=== PATIENT | female | born 1950 | race Caucasian/White ===

== ENCOUNTER 2022-06-29 13:37 | Emergency (ER) | payer MEDICARE, SELFPAY ==
[2022-06-29 13:48] VITALS: BP 128/62; PULSE 82; RESP 16; TEMP 36.4; O2SAT 96
--- NOTE | 2022-06-29 14:30 | DI.CT_ITS ---
Exam(s) CT LUMBAR SPINE SI JOINTS WO EXAM: CT LUMBAR SPINE SI JOINTS WO CLINICAL HISTORY: Worsening low back pain. TECHNIQUE: Imaging Protocol: Axial computed tomography images with coronal and sagittal reformatted images were created and reviewed COMPARISON: No exams were available for comparison FINDINGS: Bones: The last intervertebral disc space is designated the L5/S1 level for the numbering purpose of this examination. The bones appear osteoporotic. L1: There is a mild compression fracture of the inferior endplate of L1 which is eccentric toward the right.. Fracture lines are visible, consistent with an acute fracture. There is mild retropulsion, proximal 4 millimeters of the inferior endplate into the central canal with overall no significant c entral canal stenosis. L2: No compression fracture. Degenerative disc changes eccentric toward the left with prominent oste ophytes. Left-sided neural foraminal narrowing at L2-3. L3: Asymmetric loss of vertebral body height on the right side which appears chronic. L4-5: No fractures. Severe disc space narrowing and prominent endplate osteophytes and sclerosis ecc entric toward the right causing degenerative scoliosis. Facet degenerative changes present. Right-s ided neural foraminal narrowing. L5-S1: Unremarkable. Sacrum: No acute fractures. The visualized SI joints are maintained. Soft Tissues: The paraspinal soft tissues are unremarkable. Large quantity of stool noted. Mild ath erosclerotic changes of the iliac arteries and abdominal aorta. IMPRESSION: Acute mild compression fracture of the inferior endplate of L1. Old compression fracture of L3. Disc changes and scoliosis. Findings called to [facility] emergency department provider. RADIATION DOSE DELIVERED: 534.01mGy.cm Total DLP DATA REPOSITORY: All CT scans at this facility are submitted to the National Radiology Data Registry (NRDR) Dose Index Registry (DIR) with the [employer] ([employer]). RADIATION OPTIMIZATION: All CT scans at this facility use at least one of these dose optimization te chniques: automated exposure control; mA and/or kV adjustment per patient size (includes targeted exa ms where dose is matched to clinical indication); or iterative reconstruction.
[2022-06-29] MEDS: oxyCODONE 5 MG TAB PO (14:51)
[2022-06-29] MEDS: Methocarbamol 500 MG TAB PO (15:02)
--- NOTE | 2022-06-29 15:12 | ED.GENADUL_ITS ---
Discharge Plan Disposition Patient Disposition: Home Condition: Stable Discharge Details Clinical Impression: Closed compression fracture of L1 vertebra Primary Care Provider: Guadalupe,Local ED Provider: Epi Zhou Home Meds and New Rx's Prescriptions: New gabapentin 100 mg capsule 100 mg PO BID PRN (Reason: pain) Qty: 30 0RF Continued tizanidine 2 mg tablet 2 mg PO PRN PRN levothyroxine 75 mcg tablet 75 mcg PO DAILY Premarin 0.625 mg/gram cream 1 applic vaginal DAILY diclofenac sodium 50 mg tablet,delayed release (DR/EC) 50 mg PO BID Patient Comments: Take 1 TAB by mouth twice daily as needed for pain, avoid other NSAIDs ibandronate [Boniva] 150 mg Tablet 150 mg PO QMONTH Nucynta 50 mg tablet 50 mg PO PRN PRN Patient Comments: Take one tablet by mouth twice daily as needed for pain GROUP D MDD 2 Stiolto Respimat 2.5-2.5 mcg/actuation mist 1 puff INHALATION DAILY Rinvoq 15 mg tablet extended release 24 hr 15 mg PO Q OTHER DAY Discharge Instructions Instructions: Vertebral Compression Fracture (ED) Additional Instructions: Please take medication as prescribed and you may continue to use your NSAIDs and acetaminophen as needed for pain. Please use the provided opioid narcotic for severe pain only and take as directed. You may perform light activities as tolerated but do not lift any more than 2 pounds, no bending or twisting activities. It is recommended that you follow-up with your primary care provider in the next 3 to 5 days for reassessment and medication refills or changes as needed. As discussed if you develop any significant new or worsening symptoms such as fever, severe uncontrollable pain, severe weakness to your lower extremities, changes in bowel or bladder function or saddle anesthesia return immediately to the emergency department for reassessment. Referrals: Primary Care Provider [Outside] - 3 days Medical Decision Making Patient presenting to the emergency department for chief complaint of worsening back pain. Patient reports this started approximately 10 days ago after being in yoga which she felt like she strained her back but then the next day it worsened. She has been placed upon muscle relaxers, is on tramadol on long-term basis for her RA, and has better been performing stretches along with seeing intensive care unit nurse with only worsening symptoms. Patient denies any bowel or bladder dysfunction, fever chills, lower extremity dysfunction or loss of sensation. Physical exam shows tenderness to the central aspects of the lumbar spine and the left SI joint with some paraspinal tenderness also noted more on the left than the right. DTR hours are intact and equal bilateral along with pulses and sensation. LOW risk for ABDOMINAL AORTIC ANEURYSM, CAUDA EQUINA SYNDROME, EPIDURAL MASS LESION, SPINAL STENOSIS, OR HERNIATED DISK CAUSING SEVERE STENOSIS. Given the patient does state worsening of symptoms will perform CT imaging given that she states she has already had x-rays done. Pending results will give Robaxin and single dose of oxycodone. Reviewed CT imaging and radiologist interpretation that shows no acute L1 comp ression fracture with no severe cord compression but there is mild disc protrusion noted. Also noted is an old L3 compression fracture. Reassessed patient and patient does state some improvement of discomfort. Did discuss diagnosis with patient and she requests lidocaine patch with which I feel is reasonable to see if this helps with her discomfort. I will send her home with limited prescription prescription of oxycodone given that this seems to help better than her tramadol but she was instructed not to use both given potential interaction and oversedation. Patient does state in the past due to severe pain and discomfort she has been prescribed gabapentin and while side effects were not as favorable for her it did seem to help. Given this I will give her low- dose gabapentin as a trial. We will also place patient on follow-up with primary care provider for recheck of her pain and refills of RXs as needed for outpatient basis. After discussion of diagnosis and plan of care patient has no further needs, questions, or concerns and states clear understanding to return to the emergency department for any worsening symptoms. This documentation was generated using [employer] dictation system, please disregard any oddities of phrase or misspellings. Imaging Data Radiologic Study: Attestation: I personally reviewed and interpreted this imaging study as follows: Imaging: CT Scan Radiologist's impression: EXAM: CT LUMBAR SPINE SI JOINTS WO CLINICAL HISTORY: Worsening low back pain. TECHNIQUE: Imaging Protocol: Axial computed tomography images with coronal and sagittal reformatted images were created and reviewed COMPARISON: No exams were available for comparison FINDINGS: Bones: The last intervertebral disc space is designated the L5/S1 level for the numbering purpose of this examination. The bones appear osteoporotic. L1: There is a mild compression fracture of the inferior endplate of L1 which is eccentric toward the right.. Fracture lines are visible, consistent with an acute fracture. There is mild retropulsion, proximal 4 millimeters of the inferior endplate into the central canal with overall no significant central canal stenosis. L2: No compression fracture. Degenerative disc changes eccentric toward the left with prominent osteophytes. Left-sided neural foraminal narrowing at L2-3. L3: Asymmetric loss of vertebral body height on the right side which appears chronic. L4-5: No fractures. Severe disc space narrowing and prominent endplate osteophytes and sclerosis eccentric toward the right causing degenerative scoliosis. Facet degenerative changes present. Right-sided neural foraminal narrowing. L5-S1: Unremarkable. Sacrum: No acute fractures. The visualized SI joints are maintained. Soft Tissues: The paraspinal soft tissues are unremarkable. Large quantity of stool noted. Mild atherosclerotic changes of the iliac arteries and abdominal aorta. IMPRESSION: Acute mild compression fracture of the inferior endplate of L1. Old compression fracture of L3. Disc changes and scoliosis. HPI General Mode of arrival: ambulatory . Date/Time Provider Initiated Documentation: 06/29/22 14:11 . Limitations to Documentation: no limitations . Information obtained by: patient and RN notes reviewed . History of Present Illness 71 year old F presents to the emergency department with the chief complaint of Back pain, described as severe, with intensity rated at 9. Quality is described as sharp, and is localized to the back. Patient reports no radiation. Patient started experiencing this day(s) (10) and it has been constant. other things that improve symptom(s), (Heat therapy) Movement worsens symptoms . Patient notes no other symptoms.. Patient did receive the following treatments prior to arrival, NSAID Related Data Home Medications Medication Instructions Recorded Confirmed conjugated estrogens 0.625 mg/gram 1 applic vaginal DAILY 06/29/22 06/29/22 vaginal cream (Premarin) diclofenac sodium 50 mg 50 mg PO BID 06/29/22 06/29/22 tablet,delayed release gabapentin 100 mg capsule 100 mg PO BID PRN pain #30 caps 06/29/22 ibandronate 150 mg tablet (Boniva) 150 mg PO QMONTH 06/29/22 06/29/22 levothyroxine 75 mcg tablet 75 mcg PO DAILY 06/29/22 06/29/22 tapentadol 50 mg tablet (Nucynta) 50 mg PO PRN PRN 06/29/22 06/29/22 tiotropium 2.5 mcg-olodaterol 2.5 1 puff inhalation DAILY 06/29/22 06/29/22 mcg/actuation mist for inhalation (Stiolto Respimat) tizanidine 2 mg tablet 2 mg PO PRN PRN 06/29/22 06/29/22 upadacitinib 15 mg tablet,extended 15 mg PO Q OTHER DAY 06/29/22 06/29/22 release 24 hr (Rinvoq) Previous Rx's Medication Instructions Recorded gabapentin 100 mg capsule 100 mg PO BID PRN pain #30 caps 06/29/22 Allergies Allergy/AdvReac Type Severity Reaction Status Date / Time etanercept [From Enbrel] Allergy Unverified 06/29/22 14:44 meperidine [From Demerol] Allergy Unverified 06/29/22 14:44 sulfasalazine Allergy Unverified 06/29/22 14:44 General Stated Complaint: Nk/Back Pain CRISTÓBAL: 3 Review of Systems Constitutional Constitutional: Denies chills and Denies fever(s) Cardiovascular Cardiovascular: Denies chest pain and Denies dyspnea on exertion Respiratory Respiratory: Denies cough and Denies dyspnea on exertion Gastrointestinal Gastrointestinal: Denies abdominal pain, Denies change in bowel habits, Denies diarrhea, Denies nausea and Denies vomiting Genitourinary Genitourinary: Denies urinary incontinence Musculoskeletal Musculoskeletal: Reports as per HPI and Reports back pain Integumentary/Breasts Skin/Breast: Denies rash Neurologic Neurologic: Denies sensory deficit PFSH All Active Problems (Updated 06/29/22 @ 15:51 by Epi Zhou NP) Closed compression fracture of L1 vertebra (Acute) Rheumatoid arthritis (Chronic) Social History Smoking risk assessment performed?: No Alcohol Intake: never Substance use type: does not use Do you feel safe at home: Yes Do you feel safe in your relationship?: Yes Exam Const General: cooperative and no acute distress Orientation: alert, awake and oriented x3 Neck Neck: normal visual inspection, full ROM and no meningeal signs Resp Effort & Inspection: normal respiratory effort Auscultation: clear to auscultation bilaterally Cardio Rate: regular rate Rhythm: regular rhythm Heart Sounds: S1 normal and S2 normal GI Palpation: no hepatosplenomegaly, no aortic enlargement, no masses and no pulsatile masses Back/Spine/Pelvis Thoracic/Lumbar Spine: pain with thoraco-lumbar ROM, paraspinal tenderness, thoraco-lumbar ROM limited, No thoracic spinal tenderness and lumbar spinal tenderness Pelvis: no pain with anterior-posterior compression, no pain with lateral compression and buttock tenderness on the left Sacroiliac joints: on the left tender to palpation Neuro General: patient alert, patient awake and patient oriented x3 DTR's: Rt Patellar: 2+, Lt Patellar: 2+, Rt Ankle: 2+ and Lt Ankle: 2+ Extrem General: normal to inspection, full ROM and normal exam except as noted Course Vital Signs Vital signs: Vital Signs Temperature 36.4 C L 06/29/22 13:48 Pulse 82 06/29/22 13:48 Respiratory Rate 16 06/29/22 13:48 Blood Pressure 128/62 06/29/22 13:48 Pulse Oximetry 96 06/29/22 13:48 Temperature 36.4 C L 06/29/22 13:48 Temperature Source Tympanic 06/29/22 13:48 Pulse 82 06/29/22 13:48 Respiratory Rate 16 06/29/22 13:48 Blood Pressure 128/62 06/29/22 13:48 Blood Pressure Position Sitting 06/29/22 13:48 Pulse Oximetry 96 06/29/22 13:48 Oxygen Delivery Method Room Air 06/29/22 13:48 Oxygen Flow Rate 0 06/29/22 13:48 Pain Level 9 06/29/22 13:48
[2022-06-29] MEDS: Lidocaine 5% Patch 1 PATCH TP (15:54)
[2022-06-29 16:11] VITALS: BP 128/75; PULSE 68; RESP 18; O2SAT 97
== END 2022-06-29 16:08 | disposition home or self-care (01) ==
PROVIDERS: Emergency Provider Nurse Practitioner Family
DX: S32.019A Unspecified fracture of first lumbar vertebra, initial encounter for closed fracture (principal); X50.9XXA Other and unspecified overexertion or strenuous movements or postures, initial encounter
CPT/HCPCS: 99284; 72131

== ENCOUNTER 2024-04-12 12:58 | Emergency (ER) | payer MEDICARE, SELFPAY ==
[2024-04-12 12:59] VITALS: BP 132/74; PULSE 95; RESP 16; TEMP 36.4; O2SAT 98
--- NOTE | 2024-04-12 13:20 | W.ED.GENAD ---
Discharge Plan Disposition Patient Disposition: Home Condition: Stable Discharge Details Clinical Impression: Embedded tick of left lower leg Primary Care Provider: Guadalupe,Local ED Provider: Monica Lane Home Meds and New Rx's Prescriptions: New doxycycline hyclate 100 mg capsule 100 mg PO BID 10 Days Qty: 20 0RF Rx Instructions: Take 1 capsule twice daily x 10 days No Action levothyroxine 75 mcg tablet 75 mcg PO DAILY Premarin 0.625 mg/gram cream 1 applic vaginal DAILY diclofenac sodium 50 mg tablet,delayed release (DR/EC) 50 mg PO BID Patient Comments: Take 1 TAB by mouth twice daily as needed for pain, avoid other NSAIDs Stiolto Respimat 2.5-2.5 mcg/actuation mist 1 puff INHALATION DAILY Rinvoq 15 mg tablet extended release 24 hr 15 mg PO DAILY misoprostol 100 mcg tablet 100 mcg PO QID Patient Comments: Take one capsule/tablet by mouth twice daily when you take diclofenac to prevent gastritis famotidine 20 mg tablet 20 mg PO DAILY Patient Comments: Take 1 by mouth every evening with diclophenac tramadol 50 mg tablet 50 mg PO BID PRN Patient Comments: Take one capsule/tablet by mouth twice daily as needed for pain, group D MDD 2 Prolia 60 mg/mL syringe 60 mg SUBCUT ONCE Patient Comments: INJECT 60 MG UNDER THE SKIN EVERY 6 MONTHS Discharge Instructions Instructions: Insect Bites and Stings ED Additional Instructions: At this time the tick was removed. However due to the length of the tick possibly being embedded will treat you with doxycycline x 10 days. Please take this antibiotic with yogurt or a probiotic. Please follow-up with your primary care provider for further Lyme testing. Follow up with primary care provider in 3-5 days. Return to ED sooner if any worsening rash, joint pain, chest pain palpitations or concerns. Thank you for allowing us to care for you today. Referrals: Primary Care Provider [Outside] - 5 days Discharge Data Discharge Date/Time-TO BE ENTERED AT DEPARTURE: 04/12/24 13:35 HPI General Mode of arrival: ambulatory. Date/Time Provider Initiated Documentation: 04/12/24 13:07. Limitations to Documentation: no limitations. Information obtained by: patient, RN notes reviewed and old records reviewed. HPI Narrative: 73-year-old female presents to the ER with a chief complaint of embedded tick to the lateral aspect of her left thigh. She noticed it today. She states that it may have been there as early as last Saturday. There is a small red rash around the tick bite. The tick is not engorged at this time, is still alive and embedded. She denies any joint pain, other fever or any other concerns at this time. Related Data Home Medications ?Medication ?Instructions ?Recorded ?Confirmed conjugated estrogens 0.625 mg/gram 1 applic vaginal DAILY 06/29/22 04/12/24 vaginal cream (Premarin) diclofenac sodium 50 mg 50 mg PO BID 06/29/22 04/12/24 tablet,delayed release levothyroxine 75 mcg tablet 75 mcg PO DAILY 06/29/22 04/12/24 tiotropium 2.5 mcg-olodaterol 2.5 1 puff inhalation DAILY 06/29/22 04/12/24 mcg/actuation mist for inhalation (Stiolto Respimat) upadacitinib 15 mg tablet,extended 15 mg PO DAILY 06/29/22 04/12/24 release 24 hr (Rinvoq) denosumab 60 mg/mL subcutaneous 60 mg subcut ONCE 04/12/24 04/12/24 syringe (Prolia) doxycycline hyclate 100 mg capsule 100 mg PO BID Tick bite 10 days 04/12/24 #20 caps famotidine 20 mg tablet 20 mg PO DAILY 04/12/24 04/12/24 misoprostol 100 mcg tablet 100 mcg PO QID 04/12/24 04/12/24 tramadol 50 mg tablet 50 mg PO BID PRN 04/12/24 04/12/24 Previous Rx's ?Medication ?Instructions ?Recorded doxycycline hyclate 100 mg capsule 100 mg PO BID Tick bite 10 days 04/12/24 #20 caps Allergies Allergy/AdvReac Type Severity Reaction Status Date / Time etanercept (From Enbrel) Allergy Unknown Verified 04/12/24 13:03 meperidine (From Demerol) Allergy Unknown Verified 04/12/24 13:03 sulfasalazine Allergy Unknown Verified 04/12/24 13:03 General Stated Complaint: InsectBite CRISTÓBAL: 5 Exam Const General: cooperative, healthy appearing, well developed and well groomed Nutritional Appearance: average body habitus and well nourished Orientation: alert, awake and oriented x3 Extrem Left lower extremity: hip/thigh Details: foreign body mid upper leg lateral Details: single (Embedded today, surrounding ecchymosis noted) Course Vital Signs Vital signs: Vital Signs Temperature 36.4 C L 04/12/24 12:59 Pulse 95 H 04/12/24 12:59 Respiratory Rate 16 04/12/24 12:59 Blood Pressure 132/74 04/12/24 12:59 Pulse Oximetry 98 04/12/24 12:59 Temperature 36.4 C L 04/12/24 12:59 Temperature Source Oral 04/12/24 12:59 Pulse 95 H 04/12/24 12:59 Respiratory Rate 16 04/12/24 12:59 Respiratory Effort Normal 04/12/24 13:08 Blood Pressure 132/74 04/12/24 12:59 Blood Pressure Position Sitting 04/12/24 12:59 Pulse Oximetry 98 04/12/24 12:59 Oxygen Delivery Method Room Air 04/12/24 12:59 Oxygen Flow Rate 0 04/12/24 12:59 Pain Level 0 04/12/24 12:59 Procedures Foreign Body Removal Time Out Performed: no Site: left and lower extremity Description of foreign body: insect (Tick) Sedation/Analgesia: none Technique: manual removal and removal with forceps Confirmed by:: direct visualization Complications: none Post-procedure exam: awake, alert Neurovascular: normal distal pulse, normal capillary fill and no change from pre-procedure Medical Decision Making 73-year-old female presents to the ER with a chief complaint of embedded tick to the lateral aspect of her left thigh. She noticed it today. She states that it may have been there as early as last Saturday. There is a small red rash around the tick bite. The tick is not engorged at this time, is still alive and embedded. She denies any joint pain, other fever or any other concerns at this time. Tick was removed with forceps, due to the length of possible tick embedded will treat with doxycycline 100 mg x 10 days. Patient discussed home care, follow-up care and strict return instructions. Patient given a prescription. This text was generated using [employer] system, please disregard any oddities of phrase or misspellings. Quality:SDOH Health Related Social Needs: No Data to Display PFSH All Active Problems (Updated 04/12/24 @ 13:[address] NP) Embedded tick of left lower leg (Acute) Rheumatoid arthritis (Chronic) Social History Smoking risk assessment performed?: No Alcohol Intake: never Substance use type: does not use Do you feel safe at home: Yes Do you feel safe in your relationship?: Yes
[2024-04-12] MEDS: Doxycycline Hyclate 100 MG CAP PO (13:24)
--- OUTSIDE RECORDS SUMMARY | 2024-04-12 13:34 | XMS_ITS | Continuity of Care Document ---
Author Organization [facility] Pract ice Address [facility] [address] [place] [address] Phone [phone] Care Team Providers Care Rn New Graduate Name Role Phone Siddharth Riojas NP Care Team Information Injection Maintenance Technician Unavailable
--- OUTSIDE RECORDS SUMMARY | 2024-04-12 13:35 | XMS_ITS | Continuity of Care Document ---
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 ??She presents with severe back pain??for the past couple weeks.?? Her pain has remained refractory to oral pain medications and a brace.?? She has no signs of overt myelopathy on exam.?? CT??lumbar spine was reviewed and interpreted,??demonstrates??L1 and L3??vertebral body??compression??fractures. ?? I had a detailed discussion with the patient today??at the bedside.?? I have ordered an MRI lumbar spine for??further evaluation of the??chronicity of the fractures.?? We will plan for??possible kyphoplasty??after the MRIs have been obtained??during this hospital course??pending OR availability.?? Recommend continuing the brace.?? PT/OT. ?? We will follow along for neurosurgical needs. ?? Rest of care per??primary team. ? Intractable back pain Compression fracture of L1 vertebra Rheumatoid arthritis Hypothyroidism Extracted from: Title:Admit H&P Author:Gilmer Alcala PA-C te:07/11/22 71-year-old female??with pas t medical history of hypothyroidism and??rheumatoid arthritis presents to the hospital with intractable back pain.?? Intractable back pain Severe. 2/2 compression fracture - started on pain regimen - tylenol around the clock - oxycodone prn - ordered tizanidine TID ? Compression fracture of L1 vertebra Noted on CT scan - neurosurgery consulted - PT eval needs to be ordered once pain is controlled ?? Rheumatoid arthritis History of - on diclofenac BID and was previously on Rinvoq but held so fracture would heal Hypothyroidism Chronic, stable - continue??levothyroxine Medications acetaminophen 325 mg oral tablet 975 MG = 3 TAB, PO, Q6H, 0 Refill(s) Start Date: 07/15/22 Status: Ordered diclofenac sodium 50 MG, PO, BID, 0 Refill(s) Start Date: 07/11/22 Status: Ordered ergocalciferol 50,000 intl units (1.25 mg) oral capsule 50,000 UNIT = = 1 CAP, PO, Q 7 Days, Take with a full stomach and food, # 13 CAP, 0 Refill(s), Pharmacy: [facility] #[id number], 168, cm, 07/13/2022 10:13:00 EST, Height, 58.2, KG, 07/13/2022 10:13:00 EST, Weight Start Date: 07/15/22 Stop Date: 10/13/22 Status: Ordered Imodium A-D 2 mg oral tablet 2 MG, PO, PRN, PRN Diarrhea, 3 DAY, # 24 TAB, 0 Refill(s), Pharmacy: [facility] #[id number], 168, cm, 07/13/2022 10:13:00 EST, Height, 58.2, KG, 07/13/2022 10:13:00 EST, Weight Start Date: 07/15/22 Stop Date: 07/18/22 Status: Ordered levothyroxine 75 mcg (0.075 mg) oral capsule 75 MCG = 1 CAP, PO, Daily Start Date: 07/11/22 Status: Ordered melatonin 3 mg oral tablet 6 MG = 2 TAB, PO, QHS, 0 Refill(s) Start Date: 07/15/22 Status: Ordered traMADol 50 mg oral tablet 50 MG = 1 TAB, PO, Q4H, PRN for pain, 5 DAY, # 20 TAB, 0 Refill(s), Pharmacy: [facility] #[id number], 168,cm, 07/13/2022 10:13:00 EST, Height, 58.2, KG, 07/13/2022 10:13:00 EST, Weight Start Date: 07/15/22 Stop Date: 07/20/22 Status: Ordered Problem List Condition Confirmation Course Effective Dates Status Health Status Informant Adult idiopathic generalized osteoporosis Confirmed Active COPD without exacerbation Confirmed Resolved Pain syndrome, chronic Confirmed Active Compression fracture of L1 vertebra Confirmed Active Drug-induced immunodeficiency Confirmed Active Hyponatremia Confirmed Active Other specified hypothyroidism Confirmed Active Other low back pain Confirmed Active Migraine Confirmed Resolved Abnormal MRI, lumbar spine Confirmed Active Opioid dependence Confirmed Resolved H/O of biological therapy treatment Confirmed Active NSAID long-term use Confirmed Active Rheumatoid arthritis Confirmed Active Procedures Procedure Date Related Diagnosis Body Site Status hand surgery right Comple jesse hemithyroidectomy Complet ed pelvic radiation. Complet ed vaginal resection Complet ed Results Laboratory List Name Date BMP (BMP (ELECT/BUN/SPOOL SALVAGER/CA/GLU)) 07/13/22 BMP 07/12/22 BUN 07/11/22 Creatinine Blood Level 07/11/22 Glucose Blood Level 07/11/22 UA with Reflex to Urine Cult ure (UA with Reflex to Urine Culture - ED Only) (Urinalysis Reflex to Culture) 07/11/22 CBC with diff 07/11/22 Electrolytes (NA, K, CL, CO2) 07/11/22 Most recent to oldest [Reference Range]: 1 2 3 Creatinine Clearance 92.05 mL/min 1 (07/13/22 6:48 AM) 106.37 mL/min 2 (07/12/22 7:05 AM) CBC w Diff Status See Below (07/11/22 3:29 AM) 2019 Novel Coronavirus - IRCOV Negative *ND* (07/10/22 10:50 PM) Estimated GFR 98 mL/min/1.73 sqm 3 (07/13/22 6:48 AM) 102 mL/min/1.73 sqm 4 (07/12/22 7:05 AM) 99 mL/min/1.73 sqm 5 (07/11/22 3:29 AM) ANION GAP [4-12] 6 (07/13/22 6:48 AM) 9 (07/12/22 7:05 AM) 12 (07/11/22 3:29 AM) U APPEAR [Clear to Hazy] Clear (07/11/22 10:40 AM) Basophils, Automated [0.0-1.0 %] 0.4 % (07/11/22 3:29 AM) Eosinophils, Automated [1.0-3.0 %] 0.9 % *LOW* (07/11/22 3:29 AM) Neutrophils, Automated [50.0-60.0 %] 68.9 % *High* (07/11/22 3:29 AM) Lymphocytes, Automated [25.0-40.0 %] 20.0 % *LOW* (07/11/22 3:29 AM) Monocytes, Automated [4.0-10.0 %] 9.4 % (07/11/22 3:29 AM) U BILI [Negative] Negative (07/11/22 10:40 AM) U BLOOD [<10 /UL] Negative /UL (07/11/22 10:40 AM) BMP See Below (07/13/22 6:48 AM) See Below (07/12/22 7:05 AM) BUN [8-22 mg/dL] 9 mg/dL (07/13/22 6:48 AM) 8 mg/dL (07/12/22 7:05 AM) 8 mg/dL (07/11/22 3:29 AM) CA [8.4-10.3 mg/dL] 9.0 mg/dL (07/13/22 6:48 AM) 9.2 mg/dL (07/12/22 7:05 AM) CL [98-107 MMOL/L] 101 MMOL/L (07/13/22 6:48 AM) 97 MMOL/L *LOW* (07/12/22 7:05 AM) 95 MMOL/L *LOW* (07/11/22 3:29 AM) U COLOR [Pale-Dark Yellow] Colorless (07/11/22 10:40 AM) ANC Automated [1.8-6.6 / nl] 3.9 / nl (07/11/22 3:29 AM) ELECT See Below (07/11/22 3:29 AM) GLU [70-99 mg/dL] 106 mg/dL *High* (07/13/22 6:48 AM) 110 mg/dL *High* (07/12/22 7:05 AM) 99 mg/dL (07/11/22 3:29 AM) HCT [35.0-47.0 %] 40.0 % (07/11/22 3:29 AM) HGB [11.7-15.7 G/DL] 13.6 G/DL (07/11/22 3:29 AM) U KETONES [Negative mg/dL] 40 mg/dL *ABN* (07/11/22 10:40 AM) U LEUK [Negative] Negative (07/11/22 10:40 AM) MCH [26.5-34.0 pg] 27.9 pg (07/11/22 3:29 AM) MCHC [31.5-36.3 G/DL] 34.0 G/DL (07/11/22 3:29 AM) MCV [80.0-100.0 FL] 82.1 FL (07/11/22 3:29 AM) MPV [6.5-12.8 FL] 9.7 FL (07/11/22 3:29 AM) U NITRITE [Negative] Negative (07/11/22 10:40 AM) K [3.5-5.0 MMOL/L] 4.5 MMOL/L (07/13/22 6:48 AM) 4.0 MMOL/L (07/12/22 7:05 AM) 4.0 MMOL/L (07/11/22 3:29 AM) U Protein Dipstick [<25 mg/dL] Negative mg/dL (07/11/22 10:40 AM) RBC [3.80-5.20 /PL] 4.87 /PL (07/11/22 3:29 AM) Nucleated RBC <1 /100 WBC (07/11/22 3:29 AM) RDW [11.5-14.5 %] 12.5 % (07/11/22 3:29 AM) NA [136-146 MMOL/L] 135 MMOL/L *LOW* (07/13/22 6:48 AM) 131 MMOL/L *LOW* (07/12/22 7:05 AM) 131 MMOL/L *LOW* (07/11/22 3:29 AM) U SP GR [1.005-1.030] 1.007 (07/11/22 10:40 AM) TOTAL CO2 [24-32 MMOL/L] 28 MMOL/L (07/13/22 6:48 AM) 25 MMOL/L (07/12/22 7:05 AM) 24 MMOL/L (07/11/22 3:29 AM) U GLUCOSE [Negative mg/dL] Normal mg/dL (07/11/22 10:40 AM) U PH [5.0-8.0 pH units] 7.0 pH units (07/11/22 10:40 AM) UA Status See Below (07/11/22 10:40 AM) U UROBILIN [Normal mg/dL] Normal mg/dL (07/11/22 10:40 AM) WBC [3.5-11.0 / nl] 5.7 / nl (07/11/22 3:29 AM) Automated Immature Gran [0.0-0.9 %] 0.4 % (07/11/22 3:29 AM) UA NEG No Reflex to Urine C&S Negative 6 (07/11/22 10:40 AM) SPOOL SALVAGER [0.50-1.00 mg/dL] 0.52 mg/dL (07/13/22 6:48 AM) 0.45 mg/dL *LOW* (07/12/22 7:05 AM) 0.51 mg/dL (07/11/22 3:29 AM) PLATELET [150-400 / nl] 312 / nl (07/11/22 3:29 AM) Absolute Baso Automated [0.0-0.1 / nl] 0.0 / nl (07/11/22 3:29 AM) Absolute Eos Automated [0.0-0.3 / nl] <0.1 / nl (07/11/22 3:29 AM) Absolute IG Automated [<0.1 / nl] 0.0 / nl (07/11/22 3:29 AM) Absolute Lymph Automated [0.9-4.4 / nl] 1.1 / nl (07/11/22 3:29 AM) Absolute Calloway Automated [0.1-1.1 / nl] 0.5 / nl (07/11/22 3:29 AM) 1Result Comment: Estimated by Cockcroft-Gault method. SPOOL SALVAGER clinical event id = [id number] 2Result Comment: Estimated by Cockcroft-Gault method. SPOOL SALVAGER clinical event id = [id number] 3Result Comment: GFR Categories in CKD GFR Category mL/min/1.73 m^2 Terms G1 >=90 Normal or high G2 60-89 Mildly decreased* G3a 45-59 Mildly to moderately decreased G3b 30-44 Moderately to severely decreased G4 15-29 Severely decreased G5 <15 Kidney failure Abbreviations: CKD, chronic kidney disease; GFR, glomerular filtration rate. *Relative to young adult level. In the absence of evidence of kidney damage, neither GFR category G1 nor G2 fulfill the criteria for CKD Estimated GFR is calculated without a race coefficient using CKD-EPI Creatinine Equation(2020). Values should be interpreted in the context of the patient's full clinical presentation. Reference: Jon Hewitt et al. A Unifying Approach for GFR Estimation: Recommendations of the NKF-ASN Task Force on Reassessing the Inclusion of Race in Diagnosing Kidney Disease. Journal of the [place] Society [employer] Neph[employer] : JASN 2020 4Result Comment: GFR Categories in CKD GFR Category mL/min/1.73 m^2 Terms G1 >=90 Normal or high G2 60-89 Mildly decreased* G3a 45-59 Mildly to moderately decreased G3b 30-44 Moderately to severely decreased G4 15-29 Severely decreased G5 <15 Kidney failure Abbreviations: CKD, chronic kidney disease; GFR, glomerular filtration rate. *Relative to young adult level. In the absence of evidence of kidney damage, neither GFR category G1 nor G2 fulfill the criteria for CKD Estimated GFR is calculated without a race coefficient using CKD-EPI Creatinine Equation(2020). Values should be interpreted in the context of the patient's full clinical presentation. Reference: Jon Hewitt et al. A Unifying Approach for GFR Estimation: Recommendations of the NKF-ASN Task Force on Reassessing the Inclusion of Race in Diagnosing Kidney Disease. Journal of the [place] [employer] Nephrology : JASN 2020 5Result Comment: GFR Categories in CKD GFR Category mL/min/1.73 m^2 Terms G1 >=90 Normal or high G2 60-89 Mildly decreased* G3a 45-59 Mildly to moderately decreased G3b 30-44 Moderately to severely decreased G4 15-29 Severely decreased G5 <15 Kidney failure Abbreviations: CKD, chronic kidney disease; GFR, glomerular filtration rate. *Relative to young adult level. In the absence of evidence of kidney damage, neither GFR category G1 nor G2 fulfill the criteria for CKD Estimated GFR is calculated without a race coefficient using CKD-EPI Creatinine Equation(2020). Values should be interpreted in the context of the patient's full clinical presentation. Reference: Jon Hewitt et al. A Unifying Approach for GFR Estimation: Recommendations of the NKF-ASN Task Force on Reassessing the Inclusion of Race in Diagnosing Kidney Disease. Journal of the [place] [employer] Nephrology : JASN 2020 6Result Comment: Urinalysis results do not indicate need to reflex urine culture. Radiology Reports * Exam Date Time Procedure Performing Provider Status 07/13/22 11:10 PM OR Fluoro Patricia Penny; Auth (Verified) Notes: (OR Fluoro) Reason For Exam: L1 KYPHOPLASTY Report PATIENT NAME: PATTY ALEGRE , : 1950, [facility] HISTORY: Kyphoplasty. TECHNIQUE: Multiple spot fluoroscopic images were obtained. 0.9 minutes of fluoroscopic time were utilized. Images demonstrate coned and fluoroscopic images of the lower thoracic and lumbar spine centered on L1. There is placement of bilateral intrapedicular trochars and instillation of cement material into the L1 vertebral body. There is no retropulsion of contrast visualized on the lateral view. . Electronically Signed by: Michele Faith MD 07/14/22 08:02 * Exam Date Time Procedure Performing Provider Status 07/11/22 9:27 PM MRI Lumbar Spine wo Contrast Vicky Marquez; Auth (Verified) Notes: (MRI Lumbar Spine wo Contrast) Reason For Exam: Compression fracture, lumbar Report PATIENT NAME: PATTY ALEGRE , : 1950, [facility] HISTORY: L1 compression fracture demonstrated on previous CT. TECHNIQUE: Multiplanar and multisequence images of the lumbar spine were acquired. The study was performed on a 1.5T MR unit. COMPARISON: CT lumbar spine 07/11/2022 FINDINGS: There is a fracture of L1 vertebral body with mid height reduction to 50% of normal, bony retropulsion, especially at the inferior endplate, to the left of midline, measuring up to 6 mm and rupture of the annulus of the L1-L2 intervertebral disc. There are foci of hypointense T1-T2 signal in the L2, L4, S2 vertebral bodies. The lesions do not demonstrate corresponding lytic appearance on CT and could represent hemangiomas with atypical imaging features. The possibility of early marrow replacement process, including metastatic disease or multiple myeloma is not entirely excluded. A chronic compression fracture is present at L3, narrowing its mid height to 60% of normal, with 3 mm bony retropulsion of its superior endplate. There is mild chronic T12 compression deformity narrowing its anterior height to 90% of normal. There is mild dextroconvex mid lumbar scoliosis. At L1-L2, moderate left paracentral bony retropulsion, ruptured annulus and disc protrusion may be associated with minimal linear, 1.5 mm epidural hematoma, without tracking of epidural hematoma along the ventral thecal sac, causing mild spinal canal stenosis, moderate left L2 nerve root impingement, left L1 foraminal stenosis and no compression of the conus tip. At L2-L3, there is disc osteophyte complex, infolding of ligamenta flava, moderate left neural foraminal stenosis and mild bilateral L3 lateral recess stenosis. At L3-L4, there is a left intraforaminal disc osteophyte complex causing mild impingement of the left L3 root. Mild diffuse bulge of the annulus and mild bilateral L4 lateral recess stenosis is demonstrated. At L4-L5, there is moderate disc osteophyte complex with right paracentral and foraminal extension, severe right L4 neural foraminal stenosis and mild right L5 lateral recess stenosis. At L5-S1, there is mild facet joint osteoarthritis. IMPRESSION: 1. Acute compression fracture at L1 with 6 mm bony retropulsion, rupture of the dorsal annulus of L1 and L2 disc with left paracentral extension causing moderate left L2 nerve root impingement and left L1 foraminal stenosis. Mild spinal stenosis without compression of the conus tip. Probable minimal, 1.5 mm focal epidural hematoma associated with bony retropulsion, as detailed above. Imaging features favor an osteoporotic insufficiency mechanism rather than a pathologic fracture. 2. Foci of hypointense signal affecting several vertebrae may represent hemangiomas with atypical imaging features. Early stages of marrow replacement disorder, such as multiple myeloma or metastatic disease is not entirely excluded. 3. Chronic compression fractures at T12 and L3. Additional findings, as detailed above. Electronically Signed by: Franklin Yousif MD 07/12/22 08:38 * Exam Date Time Procedure Performing Provider Status 07/11/22 1:[address] Lumbar Spine wo Contrast Burton Avila kristin; Auth (Verified) Notes: (CT Lumbar Spine wo Contrast) Reason For Exam: Compression fracture, lumbar Report PATIENT NAME: Patty Alegre, , : 1950, [facility] PROCEDURE INFORMATION: Exam: CT Lumbar Spine Without Contrast Exam date and time: 07/11/2022 12:49 AM Age: 71 years old Clinical indication: Low back pain; Additional info: Compression fracture, lumbar TECHNIQUE: Imaging protocol: Computed tomography of the lumbar spine without contrast. Sagittal and coronal reformatted images were submitted for interpretation. Radiation optimization: All CT scans at this facility use at least one of these dose optimization techniques: automated exposure control; mA and/or kV adjustment per patient size (includes targeted exams where dose is matched to clinical indication); or iterative reconstruction. REPORTING DATA: Count of CT and Cardiac NM exams in prior 12 months: This patient has received 0 known CTs and 0 known cardiac nuclear medicine studies in the 12 months prior to the current study. COMPARISON: No prior studies available. FINDINGS: Bones/joints: Compression fracture vertebral body L1 with approximately 50-60% loss of volume height of the vertebral body. Fractures extend throughout the anterior and posterior cortex of the vertebral body but do not appear to extend into the pedicles or posterior neural arch. Retropulsion of posterior cortex without significant narrowing of the spinal canal although there does appear to be resultant mild bilateral neural foraminal narrowing. Partial compression superior endplate vertebral body L3 which appears old and does not extend into the posterior cortex with no evidence of bone retropulsion. Marked narrowing disc space L4-L5 with sclerosis and subchondral cysts adjacent endplates and vacuum phenomena at the disc with anterior and uncovertebral osteophytes. Moderate narrowing with vacuum phenomena disc space L3-L4. Moderate narrowing remainder of disc spaces except for L5-S1 which appears maintained. Additional possible RIGHT neural foraminal narrowing L4-L5. No significant spinal stenosis demonstrated although there are multilevel mild posterior broad-based disc bulges and ligamentum flavum hypertrophy. Osteopenia/osteoporosis. Abdomen/pelvis: Urinary bladder appears full and possibly distended. No wall thickening posteriorly and no intraluminal calcification. Nonobstructing RIGHT nephrolithiasis. Lower thorax: Very limited imaging of the posterior lung bases demonstrates fat filled defect posterior hemidiaphragms and atelectasis or possible nodule RIGHT lung base posteriorly, incompletely evaluated secondary to motion artifacts. Vasculature: Atherosclerosis. Soft tissues: Mild perispinal soft tissue edema adjacent to the L1 fracture. Paraspinal soft tissues otherwise unremarkable. IMPRESSION: Compression fraction vertebral body L1 with retropulsion of bone and resultant mild narrowing bilateral neural foramen but no spinal canal stenosis. Multilevel degenerative changes as discussed above. Several additional nonacute findings as noted. Electronically Signed by: Van SARKAR, Yandy Peacock, 07/11/22 02:56 Vital Signs Most recent to oldest [Reference Range]: 1 2 3 2nd Nurse Skin Check Sindy BLANCA, Jennifer Medrano (07/14/22 1:59 AM) Michaela BLANCA, Sherie Bautista (07/13/22 11:10 PM) Marquis BLANCA, Reba Perez (07/13/22 8:12 PM) Highest Level of Mobility 7 - Walk > 25 feet (07/15/22 3:32 PM) 6 - Walk > 10 steps (07/15/22 4:15 AM) 6 - Walk > 10 steps (07/14/22 3:17 PM) Temperature Oral [36.1-38 DegC] 36.3 DegC (07/15/22 3:10 PM) 36.8 DegC (07/15/22 7:31 AM) 36.9 DegC (07/14/22 10:32 PM) Temperature Temporal [36.1-38 DegC] 37.2 DegC (07/14/22 12:40 AM) Cardiac Rhythm Normal Sinus Rhythm (07/13/22 11:12 PM) Normal Sinus Rhythm (07/13/22 11:10 PM) Heart Rate [51-100 bpm] 92 bpm (07/15/22 3:10 PM) 74 bpm (07/15/22 7:31 AM) 86 bpm (07/14/22 10:32 PM) Heart Rate Location Device (07/15/22 3:10 PM) Device (07/15/22 7:31 AM) Device (07/14/22 10:32 PM) Respiratory Rate [13-20 br/min] 16 br/min (07/15/22 3:10 PM) 16 br/min (07/15/22 7:31 AM) 16 br/min (07/14/22 10:32 PM) Pulse Ox [89 %] 97 % (07/15/22 3:10 PM) 96 % (07/15/22 7:31 AM) 96 % (07/14/22 10:32 PM) Oxygen Source Room Air (07/15/22 3:10 PM) Room Air (07/15/22 8:07 AM) Room Air (07/15/22 7:31 AM) Blood Pressure [101-170/(reference range unavailable) mmHg] 139/77mmHg (07/15/22 3:10 PM) 114/62mmHg (07/15/22 7:31 AM) 131/76mmHg (07/14/22 10:32 PM) Blood Pressure Mean 69 mmHg (07/14/22 1:00 AM) 68 mmHg (07/14/22 12:55 AM) 75 mmHg (07/14/22 12:40 AM) Manual Blood Pressure Mean 98 (07/15/22 3:10 PM) 79 (07/15/22 7:31 AM) 94 (07/14/22 10:32 PM) Blood Pressure Location Arm Right Upper (07/15/22 3:10 PM) Arm Left Upper (07/15/22 7:31 AM) Arm Left Upper (07/14/22 10:32 PM) Height 168 cm (07/13/22 10:13 AM) 168 cm (07/11/22 6:39 AM) Weight 58.2 KG (07/13/22 10:13 AM) 61.8 KG (07/11/22 6:39 AM) Body Mass Index 20.62 kg/m2 (07/13/22 10:13 AM) 21.9 kg/m2 (07/11/22 6:39 AM) Body Surface Area 1.65 m2 (07/13/22 10:13 AM) 1.7 m2 (07/11/22 6:39 AM) [place] Body Weight Calculated 60 KG (07/13/22 10:13 AM) Comment Weight standing scale (07/13/22 10:13 AM) Height Metric 168 cm (07/13/22 10:13 AM) 168 cm (07/11/22 6:39 AM) Weight Metric 58.2 KG (07/13/22 10:13 AM) 61.8 KG (07/11/22 6:39 AM) Social History Social History Type Response Substance Abuse Use: Never. Tobacco Smoking tobacco use: Never (less than 100 in lifetime). Smoking Status Never entered on: 07/10/22 Sex Hospital Discharge Instructions Patient Education 07/15/2022 16:08:50 Kyphoplasty: Post-op Kyphoplasty: What to Expect at Home Your Recovery After kyphoplasty to relieve pain from compression fractures, your back may feel sore where the hollow needle (trocar) went into your back. This should go away in a few days. Most people are able to return to their daily activities within a day. This care sheet gives you a general idea about how long it will take for you to recover. But each person recovers at a different pace. Follow the steps below to get better as quickly as possible. How can you care for yourself at home? Activity ??? Take it easy for the first 24 hours. Rest when you feel tired. Getting enough sleep will help you recover. ??? For the first day after the procedure, avoid lifting anything that would make you strain. This may include heavy grocery bags and milk containers, a heavy briefcase or backpack, cat litter or dogfood bags, a vacuum graffiti cleaner, or a child. Diet ??? You can eat your normal diet. If your stomach is upset, try bland, low-fat foods like plain rice, broiled chicken, toast, and yogurt. Medicines ??? Your doctor will tell you if and when you can restart your medicines. You will also get instructions about taking any new medicines. ??? If you stopped taking aspirin or some other blood thinner, your doctor will tell you when to start taking it again. ??? Be safe with medicines. Take pain medicines exactly as directed. ??? If the doctor gave you a prescription medicine for pain, take it as prescribed. ??? If you are not taking a prescription pain medicine, ask your doctor if you can take an [id number] medicine. ??? Do not take two or more pain medicines at the same time unless your doctor told you to. Many pain medicines have acetaminophen, which is Tylenol. Too much acetaminophen (Tylenol) can be harmful. Incision care ??? You will have a dressing over the cut (incision). A dressing helps the incision heal and protects it. Your doctor will tell you how to take care of this. Ice ??? If you are sore where the needle was inserted, put ice or a cold pack on your back for 10 to 20minutes at a time. Try to do this every 1 to 2 hours for the next 3 days (when you are awake) or until the swelling goes down. Put a thin cloth between the ice and your skin. Follow-up care is a shoemaker part of your treatment and safety. Be sure to make and go to all appointments, and call your doctor if you are having problems. It's also a good idea to know your test resultsand keep a list of the medicines you take. When should you call for help? Call 911 anytime you think you may need emergency care. For example, call if: ??? You passed out (lost consciousness). ??? You have severe trouble breathing. ??? You have sudden chest pain and shortness of breath, or you cough up blood. ??? You are unable to move a leg at all. Call your doctor now or seek immediate medical care if: ??? You have new or worse symptoms in your legs, belly, or buttocks. Symptoms may include: ??? Numbness or tingling. ??? Weakness. ??? Pain. ??? You lose bladder or bowel control. ??? You have signs of infection, such as: ??? Increased pain, swelling, warmth, or redness. ??? Red streaks leading from the incision. ??? Pus draining from the incision. ??? A fever. Watch closely for any changes in your health, and be sure to contact your doctor if: ??? You do not get better as expected. Where can you learn more? Go to https://[email or web address].net.net/patientEd Enter O461 in the search box to learn more about Kyphoplasty: What to Expect at Home. Current as of: July 19, 2021?Content Version: 13.5 ?? [employer]. Care instructions adapted under license by your healthcare professional. If you have questions about a medical condition or this instruction, always ask your healthcare professional. [employer] disclaims any warranty or liability for your use of this information. Note * Event Display: LABRPT Authored Date: PATIENT: PATTY ALEGRE LOC: C6C 6C05 A : 48 SEX: F ORDERED BY: MAX HOOVER ORDERED: 07/12/22 09:53 ORDER#: [id number] COLLECTED: 07/13/22 06:48 RECEIVED: 07/13/22 07:01 TEST NAME RESULT ABN RANGES UNITS SITE Glucose 106 H 70 - 99 mg/dL CHR Sodium 135 L 136 - 146 mmol/L CHR Potassium 4.5 3.5 - 5.0 mmol/L CHR Chloride 101 98 - 107 mmol/L CHR CO2 28 24 - 32 mmol/L CHR BUN 9 8 - 22 mg/dL CHR Creatinine 0.52 0.50 - 1.00 mg/dL CHR Anion Gap 6 4 - 12 CHR Calcium 9.0 8.4 - 10.3 mg/dL CHR ORDERED BY: MAX HOOVER ORDERED: 07/13/22 07:01 ORDER#: [id number] COLLECTED: 07/13/22 06:48 RECEIVED: 07/13/22 07:01 TEST NAME RESULT ABN RANGES UNITS SITE Estimated GFR 98 mL/min/1.73 sqm CHR GFR Categories in CKD GFR Category mL/min/1.73 m^2 Terms G1 >=90 Normal or high G2 60-89 Mildly decreased* G3a 45-59 Mildly to moderately decreased G3b 30-44 Moderately to severely decreased G4 15-29 Severely decreased G5 <15 Kidney failure Abbreviations: CKD, chronic kidney disease; GFR, glomerular filtration rate. *Relative to young adult level. In the absence of evidence of kidney damage, neither GFR category G1 nor G2 fulfill the criteria for CKD Estimated GFR is calculated without a race coefficient using CKD-EPI Creatinine Equation(2020). Values should be interpreted in the context of the patient's full clinical presentation. Reference: Jon Hewitt et al. A Unifying Approach for GFR Estimation: Recommendations of the NKF-ASN Task Force on Reassessing the Inclusion of Race in Diagnosing Kidney Disease. Journal of the [place] Society of Nephrology : JASN 2020 [facility] = [facility], [address] [place] [address] CLIA [id number] [facility] = [facility] [address] CLIA [id number] [facility] = [facility], [address] [place] [address] CLIA [id number] [facility] = [facility] [place], [address] [place] [address] CLIA [id number] Apryl Borja M.D., Extruding Press Adjuster H = High L = Low C* = Critical AB = Abnormal * Vianney SARKAR, Michele Kenny: PERFORM, VERIFY, VERIFY Event Display: Report Authored Date: PATIENT NAME: PATTY ALEGRE, , : 1950, [facility] HISTORY: Kyphoplasty. TECHNIQUE: Multiple spot fluoroscopic images were obtained. 0.9 minutes of fluoroscopic time were utilized. Images demonstrate coned and fluoroscopic images of the lower thoracic and lumbar spine centered on L1. There is placement of bilateral intrapedicular trochars and instillation of cement material into the L1 vertebral body. There is no retropulsion of contrast visualized on the lateral view. . Electronically Signed by: Michele Faith MD 07/14/22 08:02 * Event Display: LABRPT Authored Date: PATIENT: PATTY ALEGRE LOC: C6C 6C05 A : 48 SEX: F ORDERED BY: GILMER MELGAR ORDERED: 07/11/22 08:14 ORDER#: [id number] COLLECTED: 07/12/22 07:05 RECEIVED: 07/12/22 07:48 TEST NAME RESULT ABN RANGES UNITS SITE Glucose 110 H 70 - 99 mg/dL CHR Sodium 131 L 136 - 146 mmol/L CHR Potassium 4.0 3.5 - 5.0 mmol/L CHR Chloride 97 L 98 - 107 mmol/L CHR CO2 25 24 - 32 mmol/L CHR BUN 8 8 - 22 mg/dL CHR Creatinine 0.45 L 0.50 - 1.00 mg/dL CHR Anion Gap 9 4 - 12 CHR Calcium 9.2 8.4 - 10.3 mg/dL CHR ORDERED BY: GILMER MELGAR ORDERED: 07/12/22 07:48 ORDER#: [id number] COLLECTED: 07/12/22 07:05 RECEIVED: 07/12/22 07:48 TEST NAME RESULT ABN RANGES UNITS SITE Estimated GFR 102 mL/min/1.73 sqm CHR GFR Categories in CKD GFR Category mL/min/1.73 m^2 Terms G1 >=90 Normal or high G2 60-89 Mildly decreased* G3a 45-59 Mildly to moderately decreased G3b 30-44 Moderately to severely decreased G4 15-29 Severely decreased G5 <15 Kidney failure Abbreviations: CKD, chronic kidney disease; GFR, glomerular filtration rate. *Relative to young adult level. In the absence of evidence of kidney damage, neither GFR category G1 nor G2 fulfill the criteria for CKD Estimated GFR is calculated without a race coefficient using CKD-EPI Creatinine Equation(2020). Values should be interpreted in the context of the patient's full clinical presentation. Reference: Jon Hewitt et al. A Unifying Approach for GFR Estimation: Recommendations of the NKF-ASN Task Force on Reassessing the Inclusion of Race in Diagnosing Kidney Disease. Journal of the [place] Society of Nephrology : JASN 2020 [facility] = [facility], [address] [place] [address] CLIA [id number] [facility] = [facility], [facility] [address] CLIA [id number] [facility], [facility] [place], [place] CLIA [id number] [facility] = [facility] [place], [address] [place] [address], [place] [address] [facility] [id number] Apryl Borja M.D., Extruding Press Adjuster H = High L = Low C* = Critical AB = Abnormal * Event Display: LABRPT Authored Date: PATIENT: PATTY ALEGRE LOC: C6 6C05 A : 48 SEX: F ORDERED BY: DESTINY JACKSON ORDERED: 07/11/22 03:14 ORDER#: [id number] COLLECTED: 07/11/22 10:40 RECEIVED: 07/11/22 11:11 TEST NAME RESULT ABN RANGES UNITS SITE UA Glucose Normal Negative mg/dL CHR UA Protein Negative <25 mg/dL CHR UA Bilirubin Negative Negative CHR UA Urobilinogen Normal Normal mg/dL CHR UA pH 7.0 5.0 - 8.0 pH units CHR UA Blood Negative <10 /uL CHR UA Ketones 40 AB Negative mg/dL CHR UA Nitrites Negative Negative CHR UA Leukocyte Esterase Negative Negative CHR UA Appearance Clear Clear to Hazy CHR UA Specific [place] 1.007 1.005 - 1.030 CHR UA Color Colorless Pale-Dark Yellow CHR ORDERED BY: DESTINY JACKSON ORDERED: 07/11/22 11:27 ORDER#: [id number] COLLECTED: 07/11/22 10:40 RECEIVED: 07/11/22 11:11 TEST NAME RESULT ABN RANGES UNITS SITE Urine Culture Reflex Neg Negative CHR Urinalysis results do not indicate need to reflex urine culture. [facility] = [facility], [address] [place] [address] CLIA [id number] [facility] = [facility], [facility] [address] CLIA [id number] [facility] = [facility], [address] [place] [address] CLIA [id number] [facility] = [facility], [address] [place] [address] CLIA [id number] Apryl Borja M.D., Extruding Press Adjuster H = High L = Low C* = Critical AB = Abnormal Progress Notes - Provider * Uma SARKAR [facility], [place]: PERFORM Event Display: Progress Notes - Provider Authored Date: [id number] Progress Note Hospitalist Patient name??PATTY ALEGRE?1950?Gender??Female ??Location??C6B/6B33/B Date and Time of Service 07/15/2022 07:57 Subjective (Chief Complaint, Interval History, Review of Systems) Patient's seen for follow-up/details follow. ?? Admitted for kyphoplasty Doing okay Tolerating diet and tolerating treatment Is able to sit in the chair Is able to ambulate with a walker ?? Objective/Physical Exam Vitals & Measurements T:??36.8?C (Oral)?? TMIN:??36.4?C (Oral)?? TMAX:??36.9?C (Oral)?? HR:??74?? RR:??16?? BP:??114/62?? Pulse Ox:??96 % Weight:??58.2 kg 07/13/22 10:13?Previous Weight:??61.8 kg 07/11/22 06:39?Weight Change:??-3.60 kg ? No qualifying data available. GENERAL: no acute distress, non toxic, pleasant cooperative HEAD: normocephalic EYES/EARS/NOSE/THROAT: pupils are equal, normal oropharynx NECK: normal inspection, ??no JVD, No thyromegaly?? RESPIRATORY: no respiratory distress, clear to auscultation bilaterally CARDIOVASCULAR: regular rate and rhythm, no murmurs, rubs or gallops?? ABDOMEN: soft, non-tender No Hepatosplenomegaly EXTREMITIES: no wounds, no edema, moves symmetric?? NEUROLOGIC: alert and oriented x 3, no gross motor or sensory deficits Assessment/Plan Hospital Day #??2 Compression fracture of L1 vertebra ??Post Op Day #?2??L1 KYPHOPLASTY Routine postoperative care: ?? ...................................................... the elements of early postoperative care include the following:? *early mobilization?? *pain medications?? *Incentive spirometry *DVT prophylaxis /lovenox/ heparin?? as ordered in the medication list as appropriate per case (Exceptions no Lovenox in the neurosurgical cases/ holding DVT prophylaxis if bleeding risk is high.) *Serial hemoglobin, see hemoglobin below *Physical therapy for early mobilization if mobility issues *I/ O?? *appropriate perioperative antibiotics?? continue to follow patient and provide physical therapy occupational therapy as required to maintain mobility and rehabilitation goals. See pain management scale below ? Occupational Therapy Recommendations:??Patient was seen for OT evaluation with good particpiation. Patient presents with ADL dysfunction off from baseline 2' significant lower back and left hip pain with mobility and OOB. Patient would benefit from continued skilled OT serviecs to maximize independence with ADLs and func txfers. Recommend inpatient rehab at discharge however pending progerss and post op course may advance to home OT. ? Physical Therapy Recommendations:??Patient seen for physical therapy initial evaluation on 6C. Patient requires Shar of 2 to ambulate short distances with bilateral platform walker and close chair follow. Will continue to progress current plan of care to maximize independence with functional mobility. Recommend stand pivot transfer x 2 with staff research associate. ? Pain is minimal Tolerating treatment Requires very little opioids Other low back pain Stable/with no changes continue treatment as above Other rheumatoid arthritis with rheumatoid factor of multiple sites ??On biologic therapy Was on Enbrel Was on Boniva Other specified hypothyroidism *patient with hypothyroidism?? suggestions?? ....... thyroid medication stable ........Thyroid medication Increased?? .......thyroid medication Decreased?? ....... thyroid test ordered .......check B12? *Principles of care Nidia protocol : when to test TSH T3 T4 in a hospitalized patient, to to consider changing T4 dose : see bellow?? .................................... *reasons to test/ adjust thyroid meds during hospital stay routinely are: -Cardiac histrory /refractory angina/ AV nitin conduction abnormalities ??CHF?? -neurologic patients/ parkinsons patients w tremor?? -Frail geriatric patients -Patient's on steroids -Multiple endocrine disorders -Empty sella syndrome -Unexplained bradycardia -Unexplained hypotension -Unexplained mental status changes -Amiodarone therapy -AV nitin conduction abnormalities -Elderly patients with unexplained apathy -Unexplained constipation ?? * CAUTION?? -If patient has central hypothyroidism TSH is unreliable and assess serum free T4 to guide therapy targeting to exceed the mid normal range value -Cautious in initiating thyroid therapy with frail patients with evidence of atherosclerotic cardiovascular disease heart failure and frailty -Caution with patients on amiodarone -Caution with patients with cardiac disease and conduction abnormalities -Caution with patients with other endocrine diseases such as adrenal and pituitary disorders -Caution with patients with combined thyroid and adrenal insufficiency initiate corticosteroids before treatment with levothyroxine and consult endocrinology ? Stable/with no changes continue treatment as above Adult idiopathic generalized osteoporosis ??Was previously on Boniva Qualifies to go on Prolia Outpatient discharged on Prolia Abnormal MRI, lumbar spine Stable/with no changes continue treatment as above Hyponatremia Stable/with no changes continue treatment as above NSAID long-term use Stable/with no changes continue treatment as above Opioid dependence Stable/with no changes continue treatment as above Pain syndrome, chronic Pain management Principles of management ................................ Monitor patient's condition Monitor vital signs Monitor heart rate Monitor blood pressure frequent assessment and condition And titrate medications based on All of those assessments Including pain scale Vitals and?? Clinical assessment ? imaging Review imaging ....................................... ? Review laboratory work-up including renal function And titrate adjust medications according to renal function .................................................. ?? Review ANALYST PROGRAMMER and review all internal and external sources of prescriptions For all sources of prescriptions and for possible interactions Review all other psychoactive medications Reviewed potential sources of sedatives And interactions with antihistamines And interactions with benzodiazepines caution in prescribing with patients who?? Have cardiorespiratory conditions, and have either too high or too low BMI, frail nutritional status or morbid obesity. ? Drug-induced immunodeficiency Stable/with no changes continue treatment as above H/O of biological therapy treatment Stable/with no changes continue treatment as above COPD without exacerbation Stable/with no changes continue treatment as above NPO??Except for: Meds, Three Meals, 07/13/2022 7:56:00 EST??07/13/2022 07:56:47 Diet??Regular, 07/14/2022 9:55:00 EST??07/14/2022 09:55:52 VTE Prophylaxis:Activity - Ambulate OOB, Post Procedure/OR, Nursing please document ambulation in progress notes, w Assistance, 07/13/2022 22:08:00 EST Enoxaparin (Lovenox) Dose of 40 MG, SubQ, Q24H, Order Start: 07/12/2022 8:00:00 EST, Inj, VTE risk at time of order assessed as moderate. Medication List Scheduled ?acetaminophen ??975 MG / 3 TAB, PO, Q6H ?diclofenac ??50 MG / 1 TAB, PO, BID ?docusate sodium ??100 MG / 1 CAP, PO, BID ?Enoxaparin (Lovenox) ??40 MG / 0.4 ML, SubQ, Q24H ?Lactobacillus Acidophilus and Bulgaricus (Lactinex/Floranex) Granules ??1 PKT, PO, TID ?levothyroxine ??75 MCG / 1 TAB, PO, Daily ?Melatonin tablet ??6 MG / 2 TAB, PO, QHS ?senna 8.6 mg oral tablet ??2 TAB, PO, Daily PRN ?Calcium Carbonate (TUMS) Chew Tab ??400 MG / 2 CHTAB, PO, Q4H ?HYDROmorphone ??0.3 MG / 0.3 ML, IV Push, Q4H ?naloxone ??0.04 MG / 0.1 ML, IV Push, Q_2Min ?oxyCODONE ??7.5 MG / 1.5 TAB, PO, Q4H ?oxyCODONE ??5 MG / 1 TAB, PO, Q4H ?oxyCODONE ??2.5 MG / 0.5 TAB, PO, Q4H ?simethicone ??160 MG / 2 TAB, PO, Q4H ?Zofran ??4 MG / 2 ML, IV Push, Q6H Electronically Signed: Uma SARKAR [facility], [place] 07/15/2022 20:10 * Giovanni Harden MD: PERFORM Event Display: Progress Notes - Provider Authored Date: Progress Note Patient name??SIS PATTY?1950?Gender??Female ??Location??C6B/6B33/B Date and Time of Service 07/14/2022 12:29 Subjective (Chief Complaint, Interval History, Review of Systems) Patient feels amazing. ??She is now just on Tylenol. Objective/Physical Exam Vitals & Measurements T:??36.4?C (Oral)?? TMIN:??36.4?C (Oral)?? TMAX:??37.2?C (Temporal Artery)?? HR:??81?? RR:??16?? BP:??116/61?? Pulse Ox:??95 % The patient is awake alert and oriented to name, place, and date. ??Cranial nerves II through XII are intact. ? Upper extremity strength is 5 out of 5. ??Lower extremity strength is 5 out of 5. ?? Sensory examination is intact to light touch. ?? Dressings clean dry and intact Assessment/Plan 71-year-old female with L1 kyphoplasty. ??Feels great.?? Stable from our standpoint. ??Follow-up inoutpatient setting. ?? Thank you very much for allowing us to participate in the care of the patient. ??We look forward toassisting in the care of the future. ??If you have any questions, please don't hesitate to call. ?? This dictation was done with the assistance of [employer] voice recognition. ??As such, please disregard any grammatical or typographical mistakes, despite my careful review of the document. ?? The patient was discussed with the patient, family members, interdisciplinary team including thephysicians, nurses, and ancillary staff as appropriate. ??All questions were answered to the best of my ability. Compression fracture of L1 vertebra Other low back pain Other rheumatoid arthritis with rheumatoid factor of multiple sites Other specified hypothyroidism Adult idiopathic generalized osteoporosis Abnormal MRI, lumbar spine Hyponatremia NSAID long-term use Opioid dependence Pain syndrome, chronic Drug-induced immunodeficiency H/O of biological therapy treatment COPD without exacerbation Medication List Scheduled ?acetaminophen ??975 MG / 3 TAB, PO, Q6H ?diclofenac ??50 MG / 1 TAB, PO, BID ?docusate sodium ??100 MG / 1 CAP, PO, BID ?Enoxaparin (Lovenox) ??40 MG / 0.4 ML, SubQ, Q24H ?Lactobacillus Acidophilus and Bulgaricus (Lactinex/Floranex) Granules ??1 PKT, PO, TID ?levothyroxine ??75 MCG / 1 TAB, PO, Daily ?senna 8.6 mg oral tablet ??2 TAB, PO, Daily PRN ?Calcium Carbonate (TUMS) Chew Tab ??400 MG / 2 CHTAB, PO, Q4H ?HYDROmorphone ??0.3 MG / 0.3 ML, IV Push, Q4H ?naloxone ??0.04 MG / 0.1 ML, IV Push, Q_2Min ?oxyCODONE ??7.5 MG / 1.5 TAB, PO, Q4H ?oxyCODONE ??5 MG / 1 TAB, PO, Q4H ?oxyCODONE ??2.5 MG / 0.5 TAB, PO, Q4H ?simethicone ??160 MG / 2 TAB, PO, Q4H ?Zofran ??4 MG / 2 ML, IV Push, Q6H I&O 24 hour Intake/Output??07/13/22 15:00 to 07/14/22 14:59 ?? TOTAL INTAKE ............ ?1769 ?mL Continuous Infusions .... ?800 mL ?? IV Flush ................ ?969 mL ? TOTAL OUTPUT ............ ?1905 ?mL Stool/ Count ............ ?1 Urine Void .............. ?1900 mL Estimated Blood Loss .... ?5 mL ?? FLUID BALANCE ........... ?-136 ?mL ? Electronically Signed: Giovanni Harden MD 07/14/2022 12:29 * Uma SARKAR [facility], [place]: PERFORM, MODIFY, MODIFY Event Display: Progress Notes - Provider Authored Date: [id number] Progress Note Hospitalist Patient name??PATTY ALEGRE?1950?Gender??Female ??Location??C6B/6B33/B Date and Time of Service 07/14/2022 09:47 Subjective (Chief Complaint, Interval History, Review of Systems) Patient's seen for follow-up/details follow. ? Admitted with back pain MRI showed compression fracture Had kyphoplasty On pain medications Received IV antibiotics Receiving pain medications hydromorphone IV Receiving oxycodone p.o. Receiving physical therapy May likely go home with physical therapy Restarted Lovenox Numeric Rating Pain Score Rest?? 3?? 07/14/22 08:18?? Numeric Rating Pain Score With Activity?? 3?? 07/14/22 00:40?? Pain improved to #3 She is originally from [facility] But has family here She could not secure a kyphoplasty there and she came here in order to get this procedure She has multiple comorbidities She is doing okay after this procedure She was on Enbrel before And she was also on Boniva She is probably going to go on Prolia Objective/Physical Exam Vitals & Measurements T:??36.4?C (Oral)?? TMIN:??36.4?C (Oral)?? TMAX:??37.2?C (Temporal Artery)?? HR:??81?? RR:??16?? BP:??116/61?? WT:??58.2??KG?? Pulse Ox:??95 % Weight:??58.2 kg 07/13/22 10:13?Previous Weight:??61.8 kg 07/11/22 06:39?Weight Change:??-3.60 kg ? No qualifying data available. GENERAL: no acute distress, non toxic, pleasant cooperative Frail female doing better after the procedure Neurologically intact Pain better controlled Numeric Rating Pain Score Rest?? 3?? 07/14/22 08:18? HEAD: normocephalic EYES/EARS/NOSE/THROAT: pupils are equal, normal oropharynx NECK: normal inspection, ??no JVD, No thyromegaly?? RESPIRATORY: no respiratory distress, clear to auscultation bilaterally CARDIOVASCULAR: regular rate and rhythm, no murmurs, rubs or gallops?? ABDOMEN: soft, non-tender No Hepatosplenomegaly EXTREMITIES: no wounds, no edema, moves symmetric?? NEUROLOGIC: alert and oriented x 3, no gross motor or sensory deficits Assessment/Plan Hospital Day #??1 Compression fracture of L1 vertebra ??Post Op Day #?1??L1 KYPHOPLASTY Patient name??PATTY ALEGRE?1950?Gender??Female ??Location??[facility]/PH23/A Date and Time of Service In OR:??07/13/2022 21:56 Out of OR:??07/13/2022 23:11 Name of Procedure: L1 KYPHOPLASTY Preoperative Diagnosis: WEDGE COMPRESSION FRACTURE OF??1ST LUMBAR VERTEBRA OSTEOPOROSIS Postoperative Diagnosis: WEDGE COMPRESSION FRACTURE OF??1ST LUMBAR VERTEBRA OSTEOPOROSIS Indications for Procedure: Patient is a pleasant 71-year-old??lady??with a history of rheumatoid arthritis and osteoporosis. ??She presented with severe back pain.?Imaging was obtained that revealed a L1 pathologic??compression fracture??due to osteoporosis. ??The patient was placed in a LSO brace. ??The patient's pain was refractory to conservative measures including bracing. ??An MRI was obtained that revealed??STIR signal??consistent with bone edema.?The patient had exhausted conservative measures??with intractable back pain and??ambulatory dysfunction.?The patient was offered a??L1 kyphoplasty.??The risks,benefits and alternatives to the procedure were discussed in great detail??and??the patient??elected to proceed.??Informed consent was obtained. Operative Findings: L1 vertebral body compression fracture [1] ? Status post kyphoplasty Postoperative day #1 By neurosurgery ?? Routine postoperative care: ?? ...................................................... the elements of early postoperative care include the following:? *early mobilization?? *pain medications?? *Incentive spirometry *DVT prophylaxis /lovenox/ heparin?? as ordered in the medication list as appropriate per case (Exceptions no Lovenox in the neurosurgical cases/ holding DVT prophylaxis if bleeding risk is high.) *Serial hemoglobin, see hemoglobin below *Physical therapy for early mobilization if mobility issues *I/ O?? *appropriate perioperative antibiotics?? continue to follow patient and provide physical therapy occupational therapy as required to maintain mobility and rehabilitation goals. See pain management scale below ?? Numeric Rating Pain Score Rest?? 3?? 07/14/22 08:18?? Numeric Rating Pain Score With Activity?? 3?? 07/14/22 00:40? .the Occupational Therapy Recommendations:??Patient was seen for OT evaluation with good particpiation. Patient presents with ADL dysfunction off from baseline 2' significant lower back and left hip pain with mobility and OOB. Patient would benefit from continued skilled OT serviecs to maximize independence with ADLs and func txfers. Recommend inpatient rehab at discharge however pending progerss and post op course may advance to home OT. ? Physical Therapy Recommendations:??Patient seen for physical therapy initial evaluation on 6C. Patient requires Shar of 2 to ambulate short distances with bilateral platform walker and close chair follow. Will continue to progress current plan of care to maximize independence with functional mobility. Recommend stand pivot transfer x 2 with staff research associate. ?HCT?HGB?DATE?40.0 %?13.6 G/DL?07/11/22 03:29?SPOOL SALVAGER?0.52 mg/dL?07/13/22 06:48?SPOOL SALVAGER?0.45 mg/dL?07/12/22 07:05?SPOOL SALVAGER?0.51 mg/dL?07/11/22 03:29? Other low back pain ??See above (07/11/2022 21:27 EST MRI Lumbar Spine wo Contrast) ?? IMPRESSION: ?? 1. Acute compression fracture at L1 with 6 mm bony retropulsion, rupture of the dorsal annulus of L1 and L2 disc with left paracentral extension causing moderate left L2 nerve root impingement and left L1 foraminal stenosis. Mild spinal stenosis without compression of the conus tip. Probable minimal, 1.5 mm focal epidural hematoma associated with bony retropulsion, as detailed above. Imaging features favor an osteoporotic insufficiency mechanism rather than a pathologic fracture. 2. Foci of hypointense signal affecting several vertebrae may represent hemangiomas with atypical imaging features. Early stages of marrow replacement disorder, such as multiple myeloma or metastatic disease is not entirely excluded. 3. Chronic compression fractures at T12 and L3. Additional findings, as detailed above. ?? Signature Line Electronically Signed by: ? [2] Other rheumatoid arthritis with rheumatoid factor of multiple sites ??On biologic therapy Stable/with no changes continue treatment as above Other specified hypothyroidism *patient with hypothyroidism?? suggestions? ....... patient's thyroid condition remained stable ........ adjusted thyroid medications see below .xxx...... thyroid medication stable ....... thyroid test ordered .......thyroid tests abnormal?? .......thyroid tests normal?? .......check B12? *Principles of care Protocol we follow / general suggestions?? .................................... *reasons to test/ adjust thyroid meds during hospital stay routinely are -Cardiac histrory /refractory angina/ AV nitin conduction abnormalities ??CHF?? -neurologic patients/ parkinsons patients w tremor?? -Frail geriatric patients -Patient's on steroids -Multiple endocrine disorders -Empty sella syndrome -Unexplained bradycardia -Unexplained hypotension -Unexplained mental status changes -Amiodarone therapy -AV nitin conduction abnormalities -Elderly patients with unexplained apathy -Unexplained constipation ? PRINCIPLES OF CARE / CAUTION?? -Monitor T3-T4 TSH if clinically indicated and if signs of hypothyroidism -Adjust dose as appropriate -If patient has central hypothyroidism TSH is unreliable and assess serum free T4 to guide therapy targeting to exceed the mid normal range value -Cautious in initiating thyroid therapy with frail patients with evidence of atherosclerotic cardiovascular disease heart failure and frailty -Caution with patients on amiodarone -Caution with patients with cardiac disease and conduction abnormalities -Caution with patients with other endocrine diseases such as adrenal and pituitary disorders -Caution with patients with combined thyroid and adrenal insufficiency initiate corticosteroids before treatment with levothyroxine and consult endocrinology ? Adult idiopathic generalized osteoporosis Stable/with no changes continue treatment as above Abnormal MRI, lumbar spine Stable/with no changes continue treatment as above Hyponatremia Stable/with no changes continue treatment as above NSAID long-term use Stable/with no changes continue treatment as above Opioid dependence ?? Numeric Rating Pain Score Rest?? 3?? 07/14/22 08:18?? Numeric Rating Pain Score With Activity?? 3?? 07/14/22 00:40? Pain syndrome, chronic ??See above Drug-induced immunodeficiency ??On biologic therapy H/O of biological therapy treatment ??See above COPD without exacerbation Stable/with no changes continue treatment as above NPO??Except for: Meds, Three Meals, 07/13/2022 7:56:00 EST??07/13/2022 07:56:47 Diet??Clear Liquid, Advance to: Regular, 07/13/2022 22:08:00 EST??07/13/2022 22:08:31 VTE Prophylaxis:Activity - Ambulate OOB, Post Procedure/OR, Nursing please document ambulation in progress notes, w Assistance, 07/13/2022 22:08:00 EST Enoxaparin (Lovenox) Dose of 40 MG, SubQ, Q24H, Order Start: 07/12/2022 8:00:00 EST, Inj, VTE risk at time of order assessed as moderate. Medication List Scheduled ?acetaminophen ??975 MG / 3 TAB, PO, Q6H ?diclofenac ??50 MG / 1 TAB, PO, BID ?docusate sodium ??100 MG / 1 CAP, PO, BID ?Enoxaparin (Lovenox) ??40 MG / 0.4 ML, SubQ, Q24H ?Lactobacillus Acidophilus and Bulgaricus (Lactinex/Floranex) Granules ??1 PKT, PO, TID ?levothyroxine ??75 MCG / 1 TAB, PO, Daily ?senna 8.6 mg oral tablet ??2 TAB, PO, Daily PRN ?Calcium Carbonate (TUMS) Chew Tab ??400 MG / 2 CHTAB, PO, Q4H ?HYDROmorphone ??0.3 MG / 0.3 ML, IV Push, Q4H ?naloxone ??0.04 MG / 0.1 ML, IV Push, Q_2Min ?oxyCODONE ??7.5 MG / 1.5 TAB, PO, Q4H ?oxyCODONE ??5 MG / 1 TAB, PO, Q4H ?oxyCODONE ??2.5 MG / 0.5 TAB, PO, Q4H ?simethicone ??160 MG / 2 TAB, PO, Q4H ?Zofran ??4 MG / 2 ML, IV Push, Q6H ??Discontinued Last 24 Hours?Days On Same Drug?ceFAZolin ?1 Lab Result ??GLU?106 mg/dL?07/13/22 06:48?? Diagnostic Results Occupational Therapy Recommendations:??Patient was seen for OT evaluation with good particpiation. Patient presents with ADL dysfunction off from baseline 2' significant lower back and left hip pain with mobility and OOB. Patient would benefit from continued skilled OT serviecs to maximize independence with ADLs and func txfers. Recommend inpatient rehab at discharge however pending progerss and post op course may advance to home OT. ? Physical Therapy Recommendations:??Patient seen for physical therapy initial evaluation on 6C. Patient requires Shar of 2 to ambulate short distances with bilateral platform walker and close chair follow. Will continue to progress current plan of care to maximize independence with functional mobility. Recommend stand pivot transfer x 2 with staff research associate. [1]??Operative Report; Gino SARKAR, Ramón Krueger 07/13/2022 23:14 EST [2]??MRI Lumbar Spine wo Contrast; Franklin Yousif MD 07/11/2022 21:27 EST Electronically Signed: Uma SARKAR FAAFP, Celso 07/14/2022 15:58 History and physical note * King FER, Gilmer Coats: PERFORM Event Display: H&P Authored Date: History and Physical Patient name??PATTY ALEGRE?1950?Gender??Female ??Location??C6C/6C05/A Date and Time of Service 07/11/2022 09:38 Chief Complaint back pain History of Present Illness 71-year-old female??with past medical history of hypothyroidism and??rheumatoid arthritis presents to the hospital with intractable back pain.?? Patient reports that??her back pain started 3 weeks ago after a yoga class.?? Morning after the yoga class??she started??with pain and discomfort in her low back.?? She had difficulty getting around.?? A few days??after her yoga class she went to a chiropractor??who did an adjustment.?? She states??this was on Saturday.?? Later that night??she presented to??an urgent care??because the pain had worsened so bad after the chiropractor appointment.?? At urgent care??she was given a muscle relaxer.?? She states that??did not give her any relief. ??She wasalso taking extra strength Tylenol along with her diclofenac that she takes for her rheumatoid arthritis.?? She continued to be in??pain so she presented to her PCP who gave her tramadol??and??musclerelaxer.?? She had plans to visit her daughter in [place] that following week.?? While in [place]??her pain worsened and she went to??the ER??where they diagnosed her??with??a L1 compression fracture??via CT scan. ??When she returned from [place]??she represented to her PCP??who did not give her any additional medications??but gave her a referral for neurosurgery.?? She is from [facility]??and was not able to get in for??a??appointment??with neurosurgery??until September.?? Her mother lives locally to [facility]??and has had success with kyphoplasty with??[facility].?? Patient came??to [place] this week??for an appointment with which was scheduled for yesterday.?? Unfortunately her was??COVID-positive??and the appointment was rescheduled to next week.?? Patient??felt like she cannot wait until next week??due to pain??so she presented to??the ED??last night. ??She denies any bowel or bladder incontinence.?? She has had low p.o. intake because of her pain she has not been able to??get up and prepare meals. ?? In the ED??patient was tested for COVID which was negative. ??Lab work was only significant for slightly low sodium at 131. ??The lumbar spine??CT??shows compression fracture??at L1 with retropulsion of bone??and resultant mild narrowing bilateral neural foramen but no??canal stenosis. Review of Systems Constitutional: no fever/chills, no diaphoresis, no weakness, no weight loss/gain Eyes/Ears/Nose/Throat: no vision problems, no sore throat, no nasal drainage Cardiovascular: no chest pain, no palpitations Respiratory: no shortness of breath, no cough Gastrointestinal/Genitourinary: no abdominal pain, no nausea/vomiting,??+ diarrhea, no black stools, no dysuria Musculoskeletal/Skin/Lymph: +low back pain,??no myalgias, no rashes, no gland swelling Neurologic: no headache, no dizziness, no paresthesias,??+ difficulty walking, no difficulty with speech Psychiatric: no anxiety, no depression Physical Exam Vitals & Measurements T:??36.7?C (Oral)?? TMIN:??36.5?C (Oral)?? TMAX:??36.7?C (Oral)?? HR:??83?? RR:??18?? BP:??147/73?? WT:??61.8??KG?? Pulse Ox:??100 % GENERAL:??laying flat in bed HEAD:??normocephalic EYES/EARS/NOSE/THROAT:??pupils equal,??extraocular muscles intact,??no scleral icterus,??moist mucous membranes NECK:?normal inspection RESPIRATORY:??no respiratory distress,??clear to auscultation bilaterally, no wheezes or rhonchi, O2 >90% CARDIOVASCULAR:??regular rate and rhythm,??no murmurs,??rubs or gallops ABDOMEN/:?soft,??non-tender, non-distended,??normoactive bowel sounds EXTREMITIES:??non-tender,??normal range of motion,??non-edematous NEUROLOGIC:??alert and oriented x 3 SKIN:??no rashes Assessment/Plan 71-year-old female??with past medical history of hypothyroidism and??rheumatoid arthritis presents to the hospital with intractable back pain.?? Intractable back pain Severe. 2/2 compression fracture - started on pain regimen - tylenol around the clock - oxycodone prn - ordered tizanidine TID Compression fracture of L1 vertebra Noted on CT scan - neurosurgery consulted - PT eval needs to be ordered once pain is controlled Rheumatoid arthritis History of - on diclofenac BID and was previously on Rinvoq but held so fracture would heal Hypothyroidism Chronic, stable - continue??levothyroxine Problem List/Past Medical History Ongoing Migraine Rheumatoid arthritis Historical No qualifying data Procedure/Surgical History ???hand surgery right???hemithyroidectomy???pelvic radiation.???vaginal resection Home Medications Home diclofenac sodium, 50 MG, PO, BID levothyroxine 75 mcg (0.075 mg) oral capsule, 75 MCG= 1 CAP, PO, Daily Allergies Demerol Embeline sulfADIAZINE Social History Tobacco, 07/10/2022 ?Smoking tobacco use: Never (less than 100 in lifetime) ? Alcohol, 07/10/2022 ?Alcohol Use: Never ? Substance Abuse, 07/10/2022 ?Use: Never ? Family History reviewed and non contributory Lab Results ? 07/11/22 03:29 to 07/11/22 03:29 ?L 131?L 95?8 ?/ ? 99 ? 4.0 ?24 ?0.51 ?\ ? 07/11/22 03:29 to 07/11/22 03:29 ?\? 13.6 ?/ ? 5.7 ?312 ?/? 40.0 ?\ ??BUN?07/11/22 03:29?BUN?8 mg/dL?CBC with diff?07/11/22 03:29?WBC?5.7 / nl?HGB?13.6 G/DL?HCT?40.0 %?RBC?4.87 /PL?MCV?82.1 FL?MCH?27.9 pg?MCHC?34.0 G/DL?RDW?12.5 %?MPV?9.7 FL?PLATELET?312 / nl?Nucleated RBC?<1 /100 WBC?ANC Automated?3.9 / nl?Absolute IG Automated?0.0 / nl?Absolute Lymph Automated?1.1 / nl?Absolute Calloway Automated?0.5 / nl?Absolute Eos Automated?<0.1 / nl?Absolute Baso Automated?0.0 / nl?Neutrophils, Automated?68.9 H??%?Automated Immature Gran?0.4 %?Lymphocytes, Automated?20.0 L??%?Monocytes, Automated?9.4 %?Eosinophils, Automated?0.9 L??%?Basophils, Automated?0.4 %?Creatinine Blood Level?07/11/22 03:29?SPOOL SALVAGER?0.51 mg/dL?Electrolytes (NA, K, CL, CO2)?07/11/22 03:29?NA?131 L??MMOL/L?K?4.0 MMOL/L?CL?95 L??MMOL/L?TOTAL CO2?24 MMOL/L?ANION GAP?12?Glucose Blood Level?07/11/22 03:29?GLU?99 mg/dL?? Diagnostic Results (07/11/2022 01:[address] Lumbar Spine wo Contrast) IMPRESSION:? Compression fraction vertebral body L1 with retropulsion of bone and resultant?? mild narrowing bilateral neural foramen but no spinal canal stenosis. ?? Multilevel degenerative changes as discussed above.?? [1] I selected the note template that includes Past Medical/Surgical/Social/Family histories and Home Medications as it is medically necessary and pertinent to this encounter. I personally reviewed and validated the information. [1]??CT Lumbar Spine wo Contrast; Yandy Araujo MD, 07/11/2022 01:02 EST Electronically Signed: Gilmer Alcala PA-C 07/11/2022 09:39 Physician Emergency department Note * Tj Riojas MD, Eitan Perez: PERFORM Event Display: ED Teaching Physician Record Authored Date: ED Teaching Physician Record Patient name??SIS PATTY?1950?Gender??Female ??Location??ECED/TT3/A Provider Contact Date and Time 07/11/22 00:26 Basic Information Triage Chief Complaint: REPORTS SHE HAS AN L1 FX INCREASED PAIN ED Attending Attestation I have reviewed the physician corporate law assistant's history and personally interviewed and examined the patient. I have reviewed available lab tests, medical images and/or reports, and other pertinent data with the physician corporate law assistant. Assessment and care plan formulated with the physician corporate law assistant. Shoemaker elements of my history and physical exam are documented. Attending Note Vitals & Measurements Initial Vitals 07/10 15:37 T:36.5(Oral)??HR:106??RR:20??BP:132/75??Pulse Ox:96%??Source:Room Air --- Most Recent Vitals within past 8 hrs, as of 07/11/22 01:02 T:----()??HR:78??RR:15??BP:138/72??Pulse Ox:98%??Source:Room Air --- 71-year-old female??presents to the emergency department with intractable back pain. ??The patient sustained a fracture of her L1 vertebrae per her report??at the beginning of last month. ??She was seen at a hospital in [place] and diagnosed with a compression fracture.?? She believes that this occurred while either twisting while doing yoga or from??a chiropractor??treatment.?? She was post to see a neurosurgeon today but her was diagnosed with COVID and they canceled her appointment, rescheduling to next week. ??She decided to come here for evaluation and treatment. ??She states that she is unable to walk due to the pain. ?? General:??Alert and oriented, no acute distress CV:??Regular rate Pulm:??Conversant, no respiratory distress Abd:??Soft, nondistended Ext:??No edema noted Neuro:??Alert and oriented x 4, no gross focal neurologic deficits Skin:??No rashes/lesions ?? Assessment: L1 fracture ?? Plan: #1: ??CT lumbar spine?? #2: ??Anticipate admission for??spine evaluation??given inability to ambulate. ?? Problem List/Past Medical History Ongoing No chronic problems Diagnostic Results Radiology CT Lumbar Spine wo Contrast??(ordered 07/10/22 22:06) ?? Electronically Signed: Tj Riojas MD, Eitan Perez 07/11/2022 01:07 * Karen MONROE, Estrada Perez: PERFORM Event Display: ED Physician Record Authored Date: [id number] ED Physician Record Patient name??PATTY ALEGRE?1950?Gender??Female ??Location??ECED/TT3/A Provider Contact Date and Time 07/10/22 21:51 Basic Information Triage Chief Complaint: REPORTS SHE HAS AN L1 FX INCREASED PAIN History / Exam limited by: [_] Supervising Physician: [Rebecca SARKAR_] History of Present Illness History per patient. ??Chief complaint worsening lumbar back pain. ??This is a 71-year-old female??who lives in [place]. ??Patient states she was at home on 06/18/2022??and was doing??her daily yoga class. ??Patient was performing spinal twists and felt pain in her lower back.?? Patient states??since then the pain has remained constant and has progressively worsened.?? Patient [facility] [place], x-ray revealed no acute findings and patient was prescribed oxycodone which did not help with her pain.?? Patient??was then seen by her chiropractor??and after an adjustmentthe pain worsened.?? Patient went to [place] to visit??her brother??and [id number]??and the pain??significantly worsened. ??Patient presented to an emergency department??in [place] and had a CAT scan which revealed a??L1 compression fracture.?? Patient was discharged home on oxycodone.?? Patientthen followed up with her primary care provider??who prescribed tramadol and tizanidine, both of which are not helping.?? Patient was referred to a neurosurgeon and was seen??and had a lumbar brace??placed.?? Patient had been in contact with her sister who lives here in [place]??regarding??kyphoplasty treatment.?? Patient notes that her surgeon in [place]??cannot accommodate this procedure until September.?? Patient reached out to??her sisters??spinal physician, Dr. Delacruz here in [place]??and had an appointment scheduled??today. ??Unfortunately patient's tested positive for COVID. ??Patient herself tested negative. ??Because of this??her appointment??was rescheduled for next Saturday. ??Patient states??she cannot take the pain any longer.?? Patient has a hard time walking because of the pain.?? Pain is nonradiating,??worsens with any type of movement, improves??with lying still at rest in the semirecumbent position.?? Patient denies any other injury and is otherwise without complaint at this time.?? Patient denies??recent injections, fever or recent illness,??headache, sore throat or cough, neck pain, chest pain, shortness of breath,??abdominal pain, nausea vomiting,??does note occasional nonbloody diarrhea, denies??problems urinating, hematuria, dysuria, bowel or bladder incontinence,??does note that her pelvis area??feels different but not completely numb, denies??extremity pain or swelling, skin rashes,??focal weakness. Review of Systems A 10 system review of systems was completed and negative except as documented in HPI. ?? Physical Exam Vitals & Measurements Initial Vitals 07/10 15:37 T:36.5(Oral)??HR:106??RR:20??BP:132/75??Pulse Ox:96%??Source:Room Air --- Most Recent Vitals within past 8 hrs, as of 07/10/22 22:30 T:36.5(Oral)??HR:84??RR:15??BP:140/71??Pulse Ox:96%??Source:Room Air --- Not hypoxic GENERAL:??Alert, nontoxic-appearing, no acute distress HEAD:??Atraumatic, normocephalic EYES/EARS/NOSE/THROAT:??Normal inspection,??PERRLA, EOMI, sclera clear, speech clear, airway intact NECK:??Normal inspection, supple, trachea midline, nontender, full pain-free range of motion RESPIRATORY:??No respiratory distress CARDIOVASCULAR:??Regular rate and rhythm ABDOMEN:??Soft, non-tender, no organomegaly, no masses BACK: Midline tenderness over the upper L-spine, no step-off, T-spine nontender, no CVA tenderness,limited range of motion secondary to pain EXTREMITIES:??Non-tender, normal range of motion, no edema/swelling NEUROLOGIC:??Alert and oriented x 3, no gross motor deficits, no gross sensory deficits, pleasant affect,??gait not assessed at this time secondary to pain,??normal extensor hallicus bilaterally, pain with SLR on the right at 30 degrees, negative??SLR on the left SKIN:??No rashes, warm, dry Assessment and Plan 71-year-old female??presents with 3-week history of lumbar back pain.?? Patient with a diagnosis of??an L1 compression fracture in [place]. ??Unfortunately patient does not have??any imaging or??documentation of this injury at this time.?? Low suspicion for??cauda equina, epidural abscess, acute intra- abdominal/pelvic pathology, ureterolithiasis, pyelonephritis,??dissection at this time.?? Plan??CT lumbar spine,??screening COVID swab, pain control, observation, reevaluation, likely admission for pain control and??spine surgery consult. ??Patient??stable and comfortable with plan. ??Patient seen by Dr. Fernandez??who agrees with plan. ED Progress 22:41 - ??07/10/22 - Estrada Jones CT pending at this time. ??Patient's care will be signed out to the [facility] overnight physician corporate law assistant.?? Plan is for admission with spine surgery consult.?? Patient stable. Final Impression/Disposition Low back pain History of L1 compression fracture Ambulatory dysfunction Problem List Rheumatoid arthritis Lymphoma in remission Hypothyroidism Chronic cough L1 compression fracture Procedure/Surgical History Vaginal resection Home Medications Diclofenac Synthroid Albuterol Boniva Tizanidine Tramadol Allergies Demerol Embeline sulfADIAZINE Social History Tobacco, 07/10/2022 ?Smoking tobacco use: Never (less than 100 in lifetime) ? Alcohol, 07/10/2022 ?Alcohol Use: Never ? Substance Abuse, 07/10/2022 ?Use: Never ? Diagnostic Results Radiology CT Lumbar Spine wo Contrast??(ordered 07/10/22 22:06) Pending Electronically Signed: Estrada Jones PA-C 07/10/2022 22:42 Consult note * Gino SARKAR, Ramón Krueger: PERFORM Event Display: Consult Authored Date: Consult Note Patient name??PATTY ALEGRE?1950?Gender??Female ??Location??C6C/6C05/A Date and Time of Service 07/11/2022 15:20 Chief Complaint Back pain Reason for Consult L1, L3??vertebral body compression fracture History of Present Illness Patient is a pleasant 69-year-old lady??with a history of??significant rheumatoid arthritis??on??DMARDs??and NSAIDs,??osteopenia.?? She notes that??besides area and osteopenia she is otherwise healthy.?? She states that 3 weeks ago she??was performing yoga??when she experienced severe??back pain.??She denies any??trauma at the??onset of her symptoms.?? She states that she??ultimately went to a chiropractor??and had??chiropractic maneuvers which??exacerbated her symptoms.?? She was seen??at an urgent care??in [place] and later at a hospital in [place]??where a CT was obtained that revealed??c ompression fractures.?? The patient was issued a brace. ??She states that her symptoms have remained??severe and refractory to the brace.?? She denies any significant lower extremity radicular pain or paresthesias.?? She denies any??acute bowel/bladder dysfunction.?? She states that she is otherwise ??functional and??swims??on a??frequent basis. Review of Systems As stated in HPI.?? All other review of??systems negative Physical Exam Vitals & Measurements T:??36.9?C (Oral)?? TMIN:??36.5?C (Oral)?? TMAX:??36.9?C (Oral)?? HR:??86?? RR:??18?? BP:??130/76?? WT:??61.8??KG?? Pulse Ox:??97 % Mental Status: Awake, Alert, Oriented to person, place and time Registration: Recalls 3 of 3 objects. Follows 3 step commands. Attention and concentration: Normal Speech: Normal. Able to read, able to repeat. Knowledge: Good and consistent with education Comprehension: Normal ?? Cranial Nerves: CN II: Visual crawford full to confrontation CN III, IV, : Pupils are equal, round and reactive to light. Extraocular motions are normal. Pupils 3mm brisk CN V: Facial sensation intact CN VII: Facial expression full, symmetric CN VIII: Hearing intact to soft rub CN IX, X: Normal. Palate symmetric CN XI: Normal. Sternocleidomastoid Strength normal. CN XII: Normal. Tongue not atrophic, fasciculations absent, no tongue deviation ?? Motor Exam: Muscle bulk: Normal. Overall muscle tone: Normal Pronator drift: absent Strength: 5/5 in Bilateral upper and lower extremities ?? Sensory Exam: Light touch: Normal. Proprioception: Normal. ?? Gait, Coordination and Reflexes: Gait: Deferred Coordination: Finger to nose coordination: Normal. Reflexes: Nonpathologic Left plantar: normal. Right plantar: normal Left Smith: absent. Right Smith: absent. Left ankle clonus: absent. Right ankle clonus: absent. Left pendular knee jerk: absent. Right pendular knee jerk: absent.? NAD. Pleasant. Normocephalic. Atraumatic. Sclera anicteric. RRR. Good radial pulses. Non-labored respirations. No edema.?Significant??RA stigmata with hand deformities Assessment/Plan Patient is a??69-year-old lady with a history of??RA and osteopenia. ??She presents with severe back pain??for the past couple weeks.?? Her pain has remained refractory to oral pain medications and abrace.?? She has no signs of overt myelopathy on exam.?? CT??lumbar spine was reviewed and interpret ed,??demonstrates??L1 and L3??vertebral body??compression??fractures. ?? I had a detailed discussion with the patient today??at the bedside.?? I have ordered an MRI lumbar spine for??further evaluation of the??chronicity of the fractures.?? We will plan for??possible kyphoplasty??after the MRIs have been obtained??during this hospital course??pending OR availability.?? Recommend continuing the brace.?? PT/OT. ?? We will follow along for neurosurgical needs. ?? Rest of care per??primary team. Intractable back pain Compression fracture of L1 vertebra Rheumatoid arthritis Hypothyroidism Past Medical History Ongoing Migraine Rheumatoid arthritis Historical No qualifying data Procedure/Surgical History ???hand surgery right???hemithyroidectomy???pelvic radiation.???vaginal resection Medication List Inpatient acetaminophen, 650 MG= 2 TAB, PO, Q6H Calcium Carbonate (TUMS) Chew Tab, 400 MG= 2 CHTAB, PO, Q4H, PRN diclofenac, 50 MG= 1 TAB, PO, BID Enoxaparin (Lovenox), 40 MG= 0.4 ML, SubQ, Q24H levothyroxine, 75 MCG= 1 TAB, PO, Daily oxyCODONE, 5 MG= 1 TAB, PO, Q4H, PRN oxyCODONE, 2.5 MG= 0.5 TAB, PO, Q4H, PRN tiZANidine, 4 MG= 1 TAB, PO, TID Zofran, 4 MG= 2 ML, IV Push, Q6H, PRN Home diclofenac sodium, 50 MG, PO, BID levothyroxine 75 mcg (0.075 mg) oral capsule, 75 MCG= 1 CAP, PO, Daily Allergies Demerol Embeline sulfADIAZINE Social History Tobacco, 07/10/2022 ?Smoking tobacco use: Never (less than 100 in lifetime) ? Alcohol, 07/10/2022 ?Alcohol Use: Never ? Substance Abuse, 07/10/2022 ?Use: Never ? Lab Results ? 07/11/22 03:29 to 07/11/22 03:29 ?L 131?L 95?8 ?/ ? 99 ? 4.0 ?24 ?0.51 ?\ ? 07/11/22 03:29 to 07/11/22 03:29 ?\? 13.6 ?/ ? 5.7 ?312 ?/? 40.0 ?\ I selected the note template that includes Past Medical/Surgical/Social/Family histories and Medications as it is medically necessary and pertinent to this encounter. I personally reviewed and validated the information. Electronically Signed: Ramón Christian MD, I 07/11/2022 15:26 Surgery Note * Ramón Christian MD, I: PERFORM Event Display: OP Report Authored Date: [id number] Operative Report Patient name??PATTY ALEGRE?1950?Gender??Female ??Location??[facility]/A Date and Time of Service In OR:??07/13/2022 21:56 Out of OR:??07/13/2022 23:11 Name of Procedure: L1 KYPHOPLASTY Preoperative Diagnosis: WEDGE COMPRESSION FRACTURE OF??1ST LUMBAR VERTEBRA OSTEOPOROSIS Postoperative Diagnosis: WEDGE COMPRESSION FRACTURE OF??1ST LUMBAR VERTEBRA OSTEOPOROSIS Indications for Procedure: Patient is a pleasant 71-year-old??lady??with a history of rheumatoid arthritis and osteoporosis. ??She presented with severe back pain.?Imaging was obtained that revealed a L1 pathologic??compression fracture??due to osteoporosis. ??The patient was placed in a LSO brace. ??The patient's pain was refractory to conservative measures including bracing. ??An MRI was obtained that revealed??STIR signal??consistent with bone edema.?The patient had exhausted conservative measures??with intractable back pain and??ambulatory dysfunction.?The patient was offered a??L1 kyphoplasty.??The risks,benefits and alternatives to the procedure were discussed in great detail??and??the patient??elected to proceed.??Informed consent was obtained. Operative Findings: L1 vertebral body compression fracture Description of Procedure: Patient was brought to the operating room??and placed??under general anesthesia and intubated.?She received??IV cefazolin for prophylaxis.?She was then placed prone??on gel rolls??and all pressure points were meticulously padded.?? The patient was then prepped and draped in the usual sterile fashion.?? Biplanar x-ray??was then utilized??to obtain??appropriate AP and lateral views??to assist with??incision and trajectory planning.?? A??trocar was then used to identify??the pedicle entry points at the??L1 level??bilaterally.?? Local anesthetic was then infiltrated into the planned incision sites.?? A #10 blade was used to make incision through the skin??down to subcutaneous tissue.?? A J amshidi trocar??was used to obtain??transpedicular access??into the vertebral body.?? This was thenperformed on the contralateral side as well.?? The internal stylets were then removed??and a??vertebral biopsy was obtained??and sent off for pathology.?? Medtronic Kyphon Gum Puller 2, 30/07 balloons were then inserted and expanded??and??then released.?Xpede cement was then carefully infused into the vertebral body??in a slow fashion on the??biplanar x-ray, for a total of 6cc.?? Once??a satisfactory fill had been obtained??the internal stylets were then replaced??and then removed in its entirety.?? The??incisions were then approximated with Dermabond. Band-aids were then applied.?At the end of the procedure all counts were correct x2.?Patient was then turned supine on the hospital bed and extubated in the OR and then taken to the PACU in stable condition. Specimens Removed: L1 vertebral body??bone biopsy Physician: Primary Surgeon: ??Ramón Christian MD, I Geological Engineer: None Anesthesia: General with Endotracheal Intubation Estimated Blood Loss: 5ML Prosthetic Devices/Implants: Xpede cement Electronically Signed: Ramón Christian MD, I 07/13/2022 23:21 Discharge summary * Uma SARKAR [facility], [place]: PERFORM Event Display: Discharge Summary Authored Date: Discharge Summary Patient name??PATTY ALEGRE?1950?Gender??Female ??Location??C6[facility]/6B33/B Date and Time of Service 07/15/2022 16:14 Discharge Diagnoses 1:Compression fracture of L1 vertebra; 2:Other low back pain; 3:Other rheumatoid arthritis with rheumatoid factor of multiple sites; 4:Other specified hypothyroidism; 5:Adult idiopathic generalized osteoporosis; 6:Abnormal MRI, lumbar spine; 7:Hyponatremia; 8:NSAID long-term use; 9:Pain syndrome, chronic; 10:Drug-induced immunodeficiency; 11:H/O of biological therapy treatment Disposition:??Discharge Order. Home, self care, Uma SARKAR [facility], [place], 07/15/2022 16:10:00 EST ?? Patient Instructions:?? Patient Education Provided:??Kyphoplasty: Post-op. Followup providers and additional instructions given to patient:?Unknown, Ambulatory, 2 - 7 days, Call for appointmentFollow-up [facility] your state federal relations deputy director [facility] ??Gino SARKAR, Ramón Krueger, Neurologic Surgery Service, 4 weeks, Call for appointmentFollow-up with neurosurgery Hospital Course/ Reason for Hospitalization Day of Discharge Diagnoses:?? 1:Compression fracture of L1 vertebra; 2:Other low back pain; 3:Other rheumatoid arthritis with rheumatoid factor of multiple sites; 4:Other specified hypothyroidism; 5:Adult idiopathic generalized osteoporosis; 6:Abnormal MRI, lumbar spine; 7:Hyponatremia; 8:NSAID long-term use; 9:Pain syndrome, chronic; 10:Drug-induced immunodeficiency; 11:H/O of biological therapy treatment? I had a face to face encounter with the patient, assessed the above diagnoses and determined that the patient is appropriate for the planned discharge/transfer. ?? Day of Discharge Physical Exam (as necessary): ?? Services provided on day of discharge?? (Thanh X next to all that apply): ?? _ <30 min spent by me ? _xx >30 min spent by me and/or PA/WATER POLLUTION CONTROL INSPECTOR for If applicable, name of PA/WATER POLLUTION CONTROL INSPECTOR: ? xx_ final examination ? xx_ discussion of the hospital stay ? xx_ instructions to all relevant caregivers for continuing care ? xx_ preparation of discharge records ? xx_ preparation of prescriptions ? xx_ referral forms for follow-up services Admit Date: ?? 07/13/2022 time 0 922 Discharge Date:??07/15/2022 time 1615 Discharge Destination: ? home ?? Reason for Hospitalization:? L1 osteoporotic fracture Hospital Course:? This is a 71-year-old female with??rheumatoid arthritis.?? She has been previously on Enbrel, and biologic therapy and currently has been treated by rheumatology [facility]??and has been on the Rinvoq./On Olumiant/and diclofenac twice daily with PPI prophylaxis. ??She developed an osteoporotic L1 fracture??and her primary care physicians initially treated her conservative??with tramadol??and bracing, but she had trouble finding??a neurosurgeon to perform??an L1 kyphoplasty??and she contacted her sister in [place] who secured an appointment with a neurosurgeon??here in [place].?? She eventually was admitted to our hospital had the procedure.?? The procedure was uneventful She recovered postoperative well??and she is going to follow-up with neurosurgery and her??primary care physician and here??state federal relations deputy director in [facility] Her postoperative pain management is with tramadol only.?? She was on Boniva before.?? She will consider going on Prolia injections.?? I gave her a high-dose vitamin D treatment. I gave her a short course of??tramadol prescription.?? She is neurologically intact Here physical therapy evaluation follows below Occupational Therapy Recommendations:??Patient was seen for OT evaluation with good particpiation. Patient presents with ADL dysfunction off from baseline 2' significant lower back and left hip pain with mobility and OOB. Patient would benefit from continued skilled OT serviecs to maximize independence with ADLs and func txfers. Recommend inpatient rehab at discharge however pending progerss and post op course may advance to home OT. ? Physical Therapy Recommendations:??Patient seen for physical therapy initial evaluation on 6C. Patient requires Shar of 2 to ambulate short distances with bilateral platform walker and close chair follow. Will continue to progress current plan of care to maximize independence with functional mobility. Recommend stand pivot transfer x 2 with staff research associate. ?? Her most recent pain score follows below Numeric Rating Pain Score Rest?? 0?? 07/15/22 16:01?? Her most recent labs follow below ??SPOOL SALVAGER?0.52 mg/dL?07/13/22 06:48?SPOOL SALVAGER?0.45 mg/dL?07/12/22 07:05?SPOOL SALVAGER?0.51 mg/dL?07/11/22 03:29?K?4.5 MMOL/L?07/13/22 06:48?K?4.0 MMOL/L?07/12/22 07:05?K?4.0 MMOL/L?07/11/22 03:29?HCT?HGB?DATE?40.0 %?13.6 G/DL?07/11/22 03:29?? WBC?? DATE?? 5.7 / nl?? 07/11 03:29?? 5.7 / nl?? 07/11 03:29?? 5.7 / nl?? 07/11 03:29?? Urine Studies ?07/11/22 10:40?U APPEAR?Clear?U COLOR?Colorless?U SP GR?1.007?U PH?7.0 pH units?U LEUK?Negative?U NITRITE?Negative?U Protein Dipstick?Negative mg/dL?U GLUCOSE?Normal mg/dL?U KETONES?40 A??mg/dL?U UROBILIN?Normal mg/dL?U BILI?Negative?U BLOOD?Negative /UL? Here medication list follows below Scheduled ?acetaminophen ??975 MG / 3 TAB, PO, Q6H ?diclofenac ??50 MG / 1 TAB, PO, BID ?Enoxaparin (Lovenox) ??40 MG / 0.4 ML, SubQ, Q24H ?Lactobacillus Acidophilus and Bulgaricus (Lactinex/Floranex) Granules ??1 PKT, PO, TID ?levothyroxine ??75 MCG / 1 TAB, PO, Daily ?Melatonin tablet ??6 MG / 2 TAB, PO, QHS PRN ?Calcium Carbonate (TUMS) Chew Tab ??400 MG / 2 CHTAB, PO, Q4H ?HYDROmorphone ??0.3 MG / 0.3 ML, IV Push, Q4H ?Imodium A-D ??2 MG / 1 CAP, PO, PRN ?naloxone ??0.04 MG / 0.1 ML, IV Push, Q_2Min ?oxyCODONE ??7.5 MG / 1.5 TAB, PO, Q4H ?oxyCODONE ??5 MG / 1 TAB, PO, Q4H ?oxyCODONE ??2.5 MG / 0.5 TAB, PO, Q4H ?Zofran ??4 MG / 2 ML, IV Push, Q6H ?? We were able to taper her from opioids and give her only Tylenol and tramadol Her discharge medication list includes only tramadol She does not require IV opioids anymore She has some diarrhea and she will require as needed Imodium? Important Items to follow up as an outpatient:?Disposition:??Discharge Order. Home, self care, [facility] [place], 07/15/2022 16:10:00 EST ?? Patient Instructions:?? Patient Education Provided:??Kyphoplasty: Post-op. Followup providers and additional instructions given to patient:?Unknown, Ambulatory, 2 - 7 days, Call for appointmentFollow-up with [facility]up with your state federal relations deputy director in [facility] ??Gino SARKAR, Ramón Krueger, Neurologic Surgery Service, 4 weeks, Call for appointmentFollow-up with neurosurgery Medication changes and plan to resume or stop indefinitely:? See above Consultants:? Neurosurgery Incidental findings:? OR Fluoro ??07/13/22 23:10 MRI Lumbar Spine wo Contrast ??07/11/22 21:27 CT Lumbar Spine wo Contrast ??07/11/22 01:02 ??(07/11/2022 21:27 EST MRI Lumbar Spine wo Contrast) IMPRESSION: ?? 1. Acute compression fracture at L1 with 6 mm bony retropulsion, rupture of the dorsal annulus of L1 and L2 disc with left paracentral extension causing moderate left L2 nerve root impingement and left L1 foraminal stenosis. Mild spinal stenosis without compression of the conus tip. Probable minimal, 1.5 mm focal epidural hematoma associated with bony retropulsion, as detailed above. Imaging features favor an osteoporotic insufficiency mechanism rather than a pathologic fracture. 2. Foci of hypointense signal affecting several vertebrae may represent hemangiomas with atypical imaging features. Early stages of marrow replacement disorder, such as multiple myeloma or metastatic disease is not entirely excluded. 3. Chronic compression fractures at T12 and L3. Additional findings, as detailed above. ?? Signature Line Electronically Signed by: ? Franklin Yousif MD 07/12/22 08:38 ? RADDTA This document has an image ?? [1] Physical Exam at Discharge Vitals & Measurements T:??36.3?C (Oral)?? TMIN:??36.3?C (Oral)?? TMAX:??36.9?C (Oral)?? HR:??92?? RR:??16?? BP:??139/77?? Pulse Ox:??97 % Weight:??58.2 kg 07/13/22 10:13?Previous Weight:??61.8 kg 07/11/22 06:39?Weight Change:??-3.60 kg ? GENERAL: no acute distress, non toxic, pleasant cooperative Multiple??changes in her hands consistent with??rheumatoid arthritis Neurologically intact Ambulates with a walker HEAD: normocephalic EYES/EARS/NOSE/THROAT: pupils are equal, normal oropharynx NECK: normal inspection, ??no JVD, No thyromegaly?? RESPIRATORY: no respiratory distress, clear to auscultation bilaterally CARDIOVASCULAR: regular rate and rhythm, no murmurs, rubs or gallops?? ABDOMEN: soft, non-tender No Hepatosplenomegaly EXTREMITIES: no wounds, no edema, moves symmetric?? NEUROLOGIC: alert and oriented x 3, no gross motor or sensory deficits Operative Procedures L1 KYPHOPLASTY Operative Report Patient name??PATTY ALEGRE?1950?Gender??Female ??Location??[facility]/23/A Date and Time of Service In OR:??07/13/2022 21:56 Out of OR:??07/13/2022 23:11 Name of Procedure: L1 KYPHOPLASTY Preoperative Diagnosis: WEDGE COMPRESSION FRACTURE OF??1ST LUMBAR VERTEBRA OSTEOPOROSIS Postoperative Diagnosis: WEDGE COMPRESSION FRACTURE OF??1ST LUMBAR VERTEBRA OSTEOPOROSIS Indications for Procedure: Patient is a pleasant 71-year-old??lady??with a history of rheumatoid arthritis and osteoporosis. ??She presented with severe back pain.?Imaging was obtained that revealed a L1 pathologic??compression fracture??due to osteoporosis. ??The patient was placed in a LSO brace. ??The patient's pain was refractory to conservative measures including bracing. ??An MRI was obtained that revealed??STIR signal??consistent with bone edema.?The patient had exhausted conservative measures??with intractable back pain and??ambulatory dysfunction.?The patient was offered a??L1 kyphoplasty.??The risks,benefits and alternatives to the procedure were discussed in great detail??and??the patient??elected to proceed.??Informed consent was obtained. Operative Findings: L1 vertebral body compression fracture Description of Procedure: Patient was brought to the operating room??and placed??under general anesthesia and intubated.?She received??IV cefazolin for prophylaxis.?She was then placed prone??on gel rolls??and all pressure points were meticulously padded.?? The patient was then prepped and draped in the usual sterile fashion.?? Biplanar x-ray??was then utilized??to obtain??appropriate AP and lateral views??to assistwith??incision and trajectory planning.?? A??trocar was then used to identify??the pedicle entry points at the??L1 level??bilaterally.?? Local anesthetic was then infiltrated into the planned incision sites.?? A #10 blade was used to make incision through the skin??down to subcutaneous tissue.?? A J amshidi trocar??was used to obtain??transpedicular access??into the vertebral body.?? This was thenperformed on the contralateral side as well.?? The internal stylets were then removed??and a??vertebral biopsy was obtained??and sent off for pathology.?? Medtronic Kyphon Gum Puller 2, 20/3 balloons were then inserted and expanded??and??then released.?Xpede cement was then carefully infused into the vertebral body??in a slow fashion on the??biplanar x-ray, for a total of 6cc.?? Once??a satisfactory fill had been obtained??the internal stylets were then replaced??and then removed in its entirety.?? The??incisions were then approximated with Dermabond. Band-aids were then applied.?At the end of the procedure all counts were correct x2.?Patient was then turned supine on the hospital bed and extubated in the OR and then taken to the PACU in stable condition. Specimens Removed: L1 vertebral body??bone biopsy Physician: Primary Surgeon: ??Gino SARKAR, Ramón Krueger Geological Engineer: None Anesthesia: General with Endotracheal Intubation Estimated Blood Loss: 5ML Prosthetic Devices/Implants: Xpede cement [2] Significant Labs/ Diagnostics (07/11/2022 01:[address] Lumbar Spine wo Contrast) FINDINGS:?? Bones/joints: ??Compression fracture vertebral body L1 with approximately 50-60%?? loss of volume height of the vertebral body. Fractures extend throughout the?? anterior and posterior cortex of the vertebral body but do not appear to extend?? into the pedicles or posterior neural arch. Retropulsion of posterior cortex?? without significant narrowing of the spinal canal although there does appear to?? be resultant mild bilateral neural foraminal narrowing. ??Partial compression superior endplate vertebral body L3 which appears old and?? does not extend into the posterior cortex with no evidence of bone retropulsion. ??Marked narrowing disc space L4-L5 with sclerosis and subchondral cysts?? adjacent endplates and vacuum phenomena at the disc with anterior and?? uncovertebral osteophytes. Moderate narrowing with vacuum phenomena disc space?? L3-L4. Moderate narrowing remainder of disc spaces except for L5-S1 which?? appears maintained. ??Additional possible RIGHT neural foraminal narrowing L4-L5. ??No significant spinal stenosis demonstrated although there are multilevel mild?? posterior broad-based disc bulges and ligamentum flavum hypertrophy.?Osteopenia/osteoporosis. ?? Abdomen/pelvis: ??Urinary bladder appears full and possibly distended. ??No wall?? thickening posteriorly and no intraluminal calcification. ??Nonobstructing RIGHT nephrolithiasis. Lower thorax: ??Very limited imaging of the posterior lung bases demonstrates?? fat filled defect posterior hemidiaphragms and atelectasis or possible nodule?? RIGHT lung base posteriorly, incompletely evaluated secondary to motion?? artifacts. Vasculature: ??Atherosclerosis. Soft tissues: ??Mild perispinal soft tissue edema adjacent to the L1 fracture. ?? Paraspinal soft tissues otherwise unremarkable. ?? IMPRESSION:? Compression fraction vertebral body L1 with retropulsion of bone and resultant?? mild narrowing bilateral neural foramen but no spinal canal stenosis. ?? Multilevel degenerative changes as discussed above.? Several additional nonacute findings as noted. ? Signature Line Electronically Signed by: ? Van SARKAR, Yandy Peacock, 07/11/22 02:56 ? BERTA [3] (07/11/2022 21:27 EST MRI Lumbar Spine wo Contrast) ? * Final Report * ?? Reason For Exam Compression fracture, lumbar ?? Report PATIENT NAME: PATTY ALEGRE, ?? , ??: 1950, ??[facility] ?? HISTORY: ??L1 compression fracture demonstrated on previous CT. ?? TECHNIQUE: Multiplanar and multisequence images of the lumbar spine were acquired. ??The study was performed on a 1.5T MR unit. ?? COMPARISON: ??CT lumbar spine 07/11/2022 ?? FINDINGS: ??There is a fracture of L1 vertebral body with mid height reduction to 50% of normal, bony retropulsion, especially at the inferior endplate, to the left of midline, measuring up to 6 mm and rupture of the annulus of the L1-L2 intervertebral disc. There are foci of hypointense T1-T2 signal in the L2, L4, S2 vertebral bodies. The lesions do not demonstrate corresponding lytic appearance on CT and could represent hemangiomas with atypical imaging features. The possibility of early marrow replacement process, including metastatic disease or multiple myeloma is not entirely excluded. A chronic compression fracture is present at L3, narrowing its mid height to 60% of normal, with 3 mm bony retropulsion of its superior endplate. There is mild chronic T12 compression deformity narrowing its anterior height to 90% of normal. There is mild dextroconvex mid lumbar scoliosis. ?? At L1-L2, moderate left paracentral bony retropulsion, ruptured annulus and disc protrusion may be associated with minimal linear, 1.5 mm epidural hematoma, without tracking of epidural hematoma along the ventral thecal sac, causing mild spinal canal stenosis, moderate left L2 nerve root impingement, left L1 foraminal stenosis and no compression of the conus tip. ?? At L2-L3, there is disc osteophyte complex, infolding of ligamenta flava, moderate left neural foraminal stenosis and mild bilateral L3 lateral recess stenosis. ?? At L3-L4, there is a left intraforaminal disc osteophyte complex causing mild impingement of the left L3 root. Mild diffuse bulge of the annulus and mild bilateral L4 lateral recess stenosis is demonstrated. ?? At L4-L5, there is moderate disc osteophyte complex with right paracentral and foraminal extension, severe right L4 neural foraminal stenosis and mild right L5 lateral recess stenosis. ?? At L5-S1, there is mild facet joint osteoarthritis. ?? IMPRESSION: ?? 1. Acute compression fracture at L1 with 6 mm bony retropulsion, rupture of the dorsal annulus of L1 and L2 disc with left paracentral extension causing moderate left L2 nerve root impingement and left L1 foraminal stenosis. Mild spinal stenosis without compression of the conus tip. Probable minimal, 1.5 mm focal epidural hematoma associated with bony retropulsion, as detailed above. Imaging features favor an osteoporotic insufficiency mechanism rather than a pathologic fracture. 2. Foci of hypointense signal affecting several vertebrae may represent hemangiomas with atypical imaging features. Early stages of marrow replacement disorder, such as multiple myeloma or metastatic disease is not entirely excluded. 3. Chronic compression fractures at T12 and L3. Additional findings, as detailed above. ?? Signature Line Electronically Signed by: ? Franklin Yousif MD 07/12/22 08:38 ? BERTA This document has an image ?? [4] COVID-19 Results?? 2019 Novel Coronavirus - IRCOV: Negative (07/10/22 22:50:00) Discharge Diet/Activity/Limitations Diet: Okay to return to your normal eating habits ?? Activity: Limitations: No driving until your doctor tells you to drive ?? Wound Care: Medications at Discharge What How Much When Instructions Last Dose Given New acetaminophen (acetaminophen 325 mg oral tablet) 3 Tablet by mouth Every 6 hours New loperamide (Imodium A-D 2 mg oral tablet) 2 MG by mouth As Needed as needed for Diarrhea Duration: 3 Days Pickup at [facility] #[id number] New melatonin (melatonin 3 mg oral tablet) 2 Tablet by mouth Daily at bedtime New traMADol (traMADol 50 mg oral tablet) 1 Tablet by mouth Every 4 hours as needed for for pain Duration: 5 Days Pickup at [facility] #[id number] New Vitamin D (ergocalciferol 50,000 intl units (1.25 mg) oral capsule) 1 cap by mouth Every 7 days Duration: 90 Days Take with a full stomach and food ?? Pickup at [facility] #[id number] Unchanged diclofenac (diclofenac sodium) 50 MG by mouth 2 Times A Day Unchanged levothyroxine (levothyroxine 75 mcg (0.075 mg) oral capsule) 1 cap by mouth Every day Pharmacy Information [id number]: [address] [place] [id number] [phone] FollowUp Providers Follow Up with??Gino SARKAR, Ramón Krueger, Neurologic Surgery Service When??Within 4 weeks Why: Call for appointment Follow-up with neurosurgery Where: [facility] [address], [address] [place], [place] - Follow Up with??Unknown, Ambulatory When??Within 2 - 7 days Why: Call for appointment Follow-up with your primary care physician in [facility] Follow-up with your state federal relations deputy director in [facility] Where: Additional Instructions Given to Patient You were admitted to [facility] with an L1 compression fracture You had a kyphoplasty You need to follow-up with neurosurgery You need to follow-up with your state federal relations deputy director in [facility] You need to follow with your primary care physician in [facility] You need to consider treatment with osteoporosis One of your options for osteoporosis treatments would be Prolia??injections Discuss with your state federal relations deputy director about osteoporosis options You need to take high-dose vitamin D. You need to repeat a DEXA osteoporosis scan If you have any questions The following is my information Celso Eaton MD, FAAFP ? Thank you for allowing me and the rest of the [facility] members to participate in ?your care ??if you have any questions do not hesitate ??to contact me : ? Celso Eaton MD, FAAFP [facility] hospitalist/ [facility]?? [email or web address] [address] ??[address] ??[address] [facility] ?? phone [phone] Condition at Discharge Stable/with no changes continue treatment as above [1]??MRI Lumbar Spine wo Contrast; Franklin Yousif MD 07/11/2022 21:27 EST [2]??Operative Report; Ramón Christian MD, I 07/13/2022 23:14 EST [3]??CT Lumbar Spine wo Contrast; Yandy Araujo MD, 07/11/2022 01:02 EST [4]??MRI Lumbar Spine wo Contrast; Franklin Yousif MD 07/11/2022 21:27 EST Electronically Signed: Celso Eaton MD, FAAFP 07/15/2022 16:22 CT Lumbar spine WO contrast * Van SARKAR, Yandy Peacock,: PERFORM, VERIFY, VERIFY Event Display: Report Authored Date: [id number] PATIENT NAME: Patty Alegre, , : 1950, [facility] PROCEDURE INFORMATION: Exam: CT Lumbar Spine Without Contrast Exam date and time: 07/11/2022 12:49 AM Age: 71 years old Clinical indication: Low back pain; Additional info: Compression fracture, lumbar TECHNIQUE: Imaging protocol: Computed tomography of the lumbar spine without contrast. Sagittal and coronal reformatted images were submitted for interpretation. Radiation optimization: All CT scans at this facility use at least one of these dose optimization techniques: automated exposure control; mA and/or kV adjustment per patient size (includes targeted exams where dose is matched to clinical indication); or iterative reconstruction. REPORTING DATA: Count of CT and Cardiac NM exams in prior 12 months: This patient has received 0 known CTs and 0 known cardiac nuclear medicine studies in the 12 months prior to the current study. COMPARISON: No prior studies available. FINDINGS: Bones/joints: Compression fracture vertebral body L1 with approximately 50-60% loss of volume height of the vertebral body. Fractures extend throughout the anterior and posterior cortex of the vertebral body but do not appear to extend into the pedicles or posterior neural arch. Retropulsion of posterior cortex without significant narrowing of the spinal canal although there does appear to be resultant mild bilateral neural foraminal narrowing. Partial compression superior endplate vertebral body L3 which appears old and does not extend into the posterior cortex with no evidence of bone retropulsion. Marked narrowing disc space L4-L5 with sclerosis and subchondral cysts adjacent endplates and vacuum phenomena at the disc with anterior and uncovertebral osteophytes. Moderate narrowing with vacuum phenomena disc space L3-L4. Moderate narrowing remainder of disc spaces except for L5-S1 which appears maintained. Additional possible RIGHT neural foraminal narrowing L4-L5. No significant spinal stenosis demonstrated although there are multilevel mild posterior broad-based disc bulges and ligamentum flavum hypertrophy. Osteopenia/osteoporosis. Abdomen/pelvis: Urinary bladder appears full and possibly distended. No wall thickening posteriorly and no intraluminal calcification. Nonobstructing RIGHT nephrolithiasis. Lower thorax: Very limited imaging of the posterior lung bases demonstrates fat filled defect posterior hemidiaphragms and atelectasis or possible nodule RIGHT lung base posteriorly, incompletely evaluated secondary to motion artifacts. Vasculature: Atherosclerosis. Soft tissues: Mild perispinal soft tissue edema adjacent to the L1 fracture. Paraspinal soft tissues otherwise unremarkable. IMPRESSION: Compression fraction vertebral body L1 with retropulsion of bone and resultant mild narrowing bilateral neural foramen but no spinal canal stenosis. Multilevel degenerative changes as discussed above. Several additional nonacute findings as noted. Electronically Signed by: Yandy Araujo MD, 07/11/22 02:56 MR Lumbar spine WO contrast * Franklin Yousif MD: PERFORM, VERIFY, VERIFY Event Display: Report Authored Date: [id number] PATIENT NAME: PATTY ALEGRE, , : 1950, [facility] HISTORY: L1 compression fracture demonstrated on previous CT. TECHNIQUE: Multiplanar and multisequence images of the lumbar spine were acquired. The study was performed on a 1.5T MR unit. COMPARISON: CT lumbar spine 07/11/2022 FINDINGS: There is a fracture of L1 vertebral body with mid height reduction to 50% of normal, bony retropulsion, especially at the inferior endplate, to the left of midline, measuring up to 6 mm and rupture of the annulus of the L1-L2 intervertebral disc. There are foci of hypointense T1-T2 signal in the L2, L4, S2 vertebral bodies. The lesions do not demonstrate corresponding lytic appearance on CT and could represent hemangiomas with atypical imaging features. The possibility of early marrow replacement process, including metastatic disease or multiple myeloma is not entirely excluded. A chronic compression fracture is present at L3, narrowing its mid height to 60% of normal, with 3 mm bony retropulsion of its superior endplate. There is mild chronic T12 compression deformity narrowing its anterior height to 90% of normal. There is mild dextroconvex mid lumbar scoliosis. At L1-L2, moderate left paracentral bony retropulsion, ruptured annulus and disc protrusion may be associated with minimal linear, 1.5 mm epidural hematoma, without tracking of epidural hematoma along the ventral thecal sac, causing mild spinal canal stenosis, moderate left L2 nerve root impingement, left L1 foraminal stenosis and no compression of the conus tip. At L2-L3, there is disc osteophyte complex, infolding of ligamenta flava, moderate left neural foraminal stenosis and mild bilateral L3 lateral recess stenosis. At L3-L4, there is a left intraforaminal disc osteophyte complex causing mild impingement of the left L3 root. Mild diffuse bulge of the annulus and mild bilateral L4 lateral recess stenosis is demonstrated. At L4-L5, there is moderate disc osteophyte complex with right paracentral and foraminal extension, severe right L4 neural foraminal stenosis and mild right L5 lateral recess stenosis. At L5-S1, there is mild facet joint osteoarthritis. IMPRESSION: 1. Acute compression fracture at L1 with 6 mm bony retropulsion, rupture of the dorsal annulus of L1 and L2 disc with left paracentral extension causing moderate left L2 nerve root impingement and left L1 foraminal stenosis. Mild spinal stenosis without compression of the conus tip. Probable minimal, 1.5 mm focal epidural hematoma associated with bony retropulsion, as detailed above. Imaging features favor an osteoporotic insufficiency mechanism rather than a pathologic fracture. 2. Foci of hypointense signal affecting several vertebrae may represent hemangiomas with atypical imaging features. Early stages of marrow replacement disorder, such as multiple myeloma or metastatic disease is not entirely excluded. 3. Chronic compression fractures at T12 and L3. Additional findings, as detailed above. Electronically Signed by: Franklin Yousif MD 07/12/22 08:38 Patient Care team information Care Team Personnel Name: Estrada Jones PA-C Position: [facility] Member Role: [facility] Care Team Related Persons Name:
== END 2024-04-12 13:35 | disposition home or self-care (01) ==
LOC: ER 13:33
PROVIDERS: Emergency Provider Registered Nurse Emergency
DX: S80.862A Insect bite (nonvenomous), left lower leg, initial encounter (principal); W57.XXXA Bitten or stung by nonvenomous insect and other nonvenomous arthropods, initial encounter
CPT/HCPCS: 99283